=== PATIENT | male | born 1990 | race Caucasian/White ===

== ENCOUNTER 2017-12-15 14:37 | Emergency (ER) | payer SELFPAY ==
--- NOTE | 2017-12-15 15:41 | ERPHSYRPT ---
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 PT has nasal congestion and coughing. no apparent respiratory distress. 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 Around noon the patient ate and then started to have left hand loss of strength followed by having overwhelming desire to go to sleep. His hand has regained his strength. He finally called in to his office and they evaluated him. He states that as he was being evaluated, he would "fall asleep and then wake up". He denies chest pain or shortness of breath. He states for the last 2 weeks he has been sick with a cough and body aches. He he has been taking [id number] medicines. Today he took DayQuil before going to work. His past medical history is unremarkable. Timing/Duration: today Severity: moderate Associated Symptoms: cough, malaise Allergies/Adverse Reactions: No Known Drug Allergies Allergy (Unverified 12/15/17 14:53) Home Medications: No Reportable Medications [No Reported Medications] 12/15/17 [History] Hx Tetanus, Diphtheria Vaccination/Date Given: Yes Hx Influenza Vaccination/Date Given: Yes Hx Pneumococcal Vaccination/Date Given: No Immunizations Up to Date: Yes - Review of Systems Constitutional: Lethargy Eyes: No Symptoms Ears, Nose, & Throat: Sinus Drainage Respiratory: Cough Cardiac: No Chest Pain, No Edema, No Syncope Abdominal/Gastrointestinal: No Abdominal Pain, No Nausea, No Vomiting, No Diarrhea Genitourinary Symptoms: No Dysuria Musculoskeletal: No Back Pain, No Neck Pain Skin: No Rash Neurological: No Dizziness, No Focal Weakness, No Sensory Changes Psychological: No Symptoms Endocrine: No Symptoms Hematologic/Lymphatic: No Symptoms Immunological/Allergic: No Symptoms All Other Systems: Reviewed and Negative - Past Medical History Pertinent Past Medical History: Yes Psycho-Social History: Anxiety, Other Other Medical History: PTSD, Depression - Past Surgical History Past Surgical History: Yes Gastrointestinal: Appendectomy - Social History Smoking Status: Former smoker Exposure to second hand smoke: No Drug Use: none Patient Lives Alone: Yes - Nursing Vital Signs Nursing Vital Signs: Initial Vital Signs Temperature 98.5 F 12/15/17 14:38 Pulse Rate 72 12/15/17 14:38 Respiratory Rate 20 12/15/17 14:38 Blood Pressure 132/86 12/15/17 14:38 O2 Sat by Pulse Oximetry 97 12/15/17 14:38 Pain Scale Pain Intensity 0 - Physical Exam General Appearance: no apparent distress, alert Eye Exam: PERRL/EOMI, eyes nml inspection Ears, Nose, Throat Exam: normal ENT inspection, TMs normal, pharynx normal, moist mucous membranes Neck Exam: normal inspection, non-tender, supple, full range of motion Respiratory Exam: normal breath sounds, lungs clear, No respiratory distress Cardiovascular Exam: regular rate/rhythm, normal heart sounds, normal peripheral pulses Gastrointestinal/Abdomen Exam: soft, normal bowel sounds, No tenderness, No mass Rectal Exam: not done Back Exam: normal inspection, normal range of motion, No CVA tenderness, No vertebral tenderness Extremity Exam: normal inspection, normal range of motion, pelvis stable Neurologic Exam: alert, oriented x 3, cooperative, normal mood/affect, nml cerebellar function, nml station & gait, sensation nml, No motor deficits Skin Exam: normal color, warm, dry, No rash Lymphatic Exam: No adenopathy SpO2 Interpretation: normal SpO2: 97 Oxygen Delivery: Room Air - Course EKG Interpreted by Me: RATE, Sinus Rhythm, NORMAL AXIS, NORMAL INTERVALS, NORMAL QRS, NORMAL ST-T - Radiology Exams Chest X-ray Interpretation: Teleradiologist Report, Negative (per Dr Andrade) Ordered Tests: Active Orders 24 hr Category Date Time Status EKG-ER Only STAT Care 12/15/17 15:46 Active IV Insertion STAT Care 12/15/17 15:46 Active CHEST 2 VIEWS (PA AND LAT) Stat Exams 12/15/17 15:46 Completed CBC W DIFF Stat Lab 12/15/17 14:45 Completed CMP Stat Lab 12/15/17 14:45 Completed Lactic Acid Stat Lab 12/15/17 15:46 Results TROPONIN Q3H Lab 12/15/17 14:45 Completed TROPONIN Q3H Lab 12/15/17 19:00 Ordered TROPONIN Q3H Lab 12/15/17 22:00 Ordered TROPONIN Q3H Lab 12/16/17 01:00 Ordered TROPONIN Q3H Lab 12/16/17 04:00 Ordered UA W/ MICROSCOPIC Stat Lab 12/15/17 16:38 Completed Urine Triage Profile Stat Lab 12/15/17 16:38 Completed Medication Summary Discontinued Medications Generic Name Dose Route Start Last Admin Trade Name Freq PRN Reason Stop Dose Admin Sodium Chloride 1,000 mls @ 999 mls/hr 12/15/17 15:46 12/15/17 17:05 Sodium Chloride 0.9% 1000 Ml IV 12/15/17 16:46 Infused .Q1H1M STA Infusion Sodium Chloride Confirm 12/15/17 15:53 Sodium Chloride 0.9% 1000 Ml Administered 12/15/17 15:54 Dose 1,000 mls @ ud .ROUTE .STK-MED ONE Lab/Rad Data: Laboratory Result Diagrams 12/15/17 14:45 12/15/17 14:45 Laboratory Results 12/15/17 12/15/17 12/15/17 Range/Units 16:38 16:38 15:46 WBC (4.0-10.5) K/mm3 RBC (4.1-5.6) M/mm3 Hgb (12.5-18.0) gm/dl Hct (42-50) % MCV (78-100) fl MCH (26-32) pg MCHC (32-36) g/dl RDW (11.5-14.0) % Plt Count (150-450) K/mm3 MPV (6-9.5) fl Gran % (36.0-66.0) % Eos # (Auto) (0-0.5) Absolute Lymphs (auto) (1.0-4.6) Absolute Monos (auto) (0.0-1.3) Lymphocytes % (24.0-44.0) % Monocytes % (0.0-12.0) % Eosinophils % (0.00-5.0) % Basophils % (0.0-0.4) % Absolute Granulocytes (1.4-6.9) Basophils # (0-0.4) Sodium (137-145) mmol/L Potassium (3.5-5.1) mmol/L Chloride (98-107) mmol/L Carbon Dioxide (22-30) mmol/L Anion Gap (5-15) MEQ/L BUN (9-20) mg/dL Creatinine (0.66-1.25) mg/dL Estimated GFR ML/MIN Glucose (74-106) mg/dL Lactic Acid 2.1 H (0.4-2.0) Calcium (8.4-10.2) mg/dL Total Bilirubin (0.2-1.3) mg/dL AST (17-59) U/L ALT (0-50) U/L Alkaline Phosphatase (38-126) U/L Troponin I (0.000-0.034) ng/mL Serum Total Protein (6.3-8.2) g/dL Albumin (3.5-5.0) g/dL Ur Collection Type CCMS Urine Color YELLOW (YELLOW) Urine Appearance CLEAR (CLEAR) Urine pH 8.0 (5-6) Ur Specific Burley 1.010 (1.005-1.025) Urine Protein NEGATIVE (Negative) Urine Ketones NEGATIVE (NEGATIVE) Urine Blood 50 (0-5) Buck/ul Urine Nitrite NEGATIVE (NEGATIVE) Urine Bilirubin NEGATIVE (NEGATIVE) Urine Urobilinogen 4 (0-1) mg/dL Ur Leukocyte Esterase NEGATIVE (NEGATIVE) Urine Microscopic RBC 15-25 (0-2) /HPF Urine Microscopic WBC 0-2 (0-5) /HPF Urine Mucus SLIGHT (NEGATIVE) /HPF Urine Culture Reflexed NO (NO) Urine Glucose NEGATIVE (NEGATIVE) mg/dL Urine Opiates Level NEGATIVE (NEGATIVE) Ur Methadone NEGATIVE (NEGATIVE) Urine Barbiturates NEGATIVE (NEGATIVE) Ur Phencyclidine (PCP) NEGATIVE (NEGATIVE) Urine Amphetamine NEGATIVE (NEGATIVE) U Benzodiazepine Level NEGATIVE (NEGATIVE) Urine Cocaine NEGATIVE (NEGATIVE) Urine Marijuana (THC) NEGATIVE (NEGATIVE) Specimen Received 12-15-17 1700 12/15/17 12/15/17 12/15/17 Range/Units 14:45 14:45 14:45 WBC 8.3 (4.0-10.5) K/mm3 RBC 4.85 (4.1-5.6) M/mm3 Hgb 15.2 (12.5-18.0) gm/dl Hct 42.9 (42-50) % MCV 88.5 (78-100) fl MCH 31.3 (26-32) pg MCHC 35.4 (32-36) g/dl RDW 12.2 (11.5-14.0) % Plt Count 220 (150-450) K/mm3 MPV 9.5 (6-9.5) fl Gran % 68.9 H (36.0-66.0) % Eos # (Auto) 0.02 (0-0.5) Absolute Lymphs (auto) 1.75 (1.0-4.6) Absolute Monos (auto) 0.82 (0.0-1.3) Lymphocytes % 21.0 L (24.0-44.0) % Monocytes % 9.8 (0.0-12.0) % Eosinophils % 0.2 (0.00-5.0) % Basophils % 0.1 (0.0-0.4) % Absolute Granulocytes 5.74 (1.4-6.9) Basophils # 0.01 (0-0.4) Sodium 142 (137-145) mmol/L Potassium 3.5 (3.5-5.1) mmol/L Chloride 105 (98-107) mmol/L Carbon Dioxide 25 (22-30) mmol/L Anion Gap 15.6 H (5-15) MEQ/L BUN 16 (9-20) mg/dL Creatinine 0.80 (0.66-1.25) mg/dL Estimated GFR > 60.0 ML/MIN Glucose 105 (74-106) mg/dL Lactic Acid (0.4-2.0) Calcium 9.1 (8.4-10.2) mg/dL Total Bilirubin 0.90 (0.2-1.3) mg/dL AST 22 (17-59) U/L ALT 31 (0-50) U/L Alkaline Phosphatase 78 (38-126) U/L Troponin I < 0.012 (0.000-0.034) ng/mL Serum Total Protein 7.7 (6.3-8.2) g/dL Albumin 4.4 (3.5-5.0) g/dL Ur Collection Type Urine Color (YELLOW) Urine Appearance (CLEAR) Urine pH (5-6) Ur Specific Burley (1.005-1.025) Urine Protein (Negative) Urine Ketones (NEGATIVE) Urine Blood (0-5) Buck/ul Urine Nitrite (NEGATIVE) Urine Bilirubin (NEGATIVE) Urine Urobilinogen (0-1) mg/dL Ur Leukocyte Esterase (NEGATIVE) Urine Microscopic RBC (0-2) /HPF Urine Microscopic WBC (0-5) /HPF Urine Mucus (NEGATIVE) /HPF Urine Culture Reflexed (NO) Urine Glucose (NEGATIVE) mg/dL Urine Opiates Level (NEGATIVE) Ur Methadone (NEGATIVE) Urine Barbiturates (NEGATIVE) Ur Phencyclidine (PCP) (NEGATIVE) Urine Amphetamine (NEGATIVE) U Benzodiazepine Level (NEGATIVE) Urine Cocaine (NEGATIVE) Urine Marijuana (THC) (NEGATIVE) Specimen Received - Progress Progress: improved Progress Note: 12/15/17 17:40 Pt improving after NS 1 L by IV. Counseled pt/family regarding: lab results, diagnosis, rad results - Departure Time of Disposition: 17:41 Departure Disposition: Home Clinical Impression: Weakness, Dehydration Condition: Stable Critical Care Time: No Additional Instructions: You have weakness and mild dehydration. You were given fluids by IV in the ER. Stay well hydrated. Follow-up with your primary medical doctor in one to 2 days.
[2017-12-15] MEDS ORDERED: Sodium Chloride 0.9% 1000 ML 1,000 ML IV STA (15:46)
[2017-12-15 15:53] LABS: BASOPHIL % 0.1 % (0.0-0.4); Basophil (Absolute #) 0.01 (0-0.4); Eosinophil % 0.2 % (0.00-5.0); Eosinophil (Absolute #) 0.02 (0-0.5); Granulocyte Absolute (ANC) 5.74 (1.4-6.9); Granulocytes % 68.9 % (36.0-66.0); Hematocrit 42.9 % (42-50); Hemoglobin 15.2 gm/dl (12.5-18.0); Lymphocyte (Absolute #) 1.75 (1.0-4.6); Mean Cell Volume 88.5 fl (78-100); Mean Corpuscular Hemoglobin 31.3 pg (26-32); Mean Corpuscular Hgb Concent. 35.4 g/dl (32-36); Mean Platelet Volume 9.5 fl (6-9.5); Monocyte (Absolute #) 0.82 (0.0-1.3); Monocytes % 9.8 % (0.0-12.0); Platelet Count 220 K/mm3 (150-450); Red Blood Count 4.85 M/mm3 (4.1-5.6); Red Cell Distribution Width 12.2 % (11.5-14.0); White Blood Count 8.3 K/mm3 (4.0-10.5)
[2017-12-15] MEDS ORDERED: Sodium Chloride 0.9% 1000 ML 1,000 ML ONE (15:53)
[2017-12-15 15:57] LABS: Lactic Acid 2.1 (0.4-2.0)
[2017-12-15 16:16] LABS: ALBUMIN 4.4 g/dL (3.5-5.0); ALKALINE PHOSPHATASE 78 U/L (38-126); ANION GAP 15.6 MEQ/L (5-15); BLOOD UREA NITROGEN 16 mg/dL (9-20); CHLORIDE 105 mmol/L (98-107); Calcium 9.1 mg/dL (8.4-10.2); Carbon Dioxide 25 mmol/L (22-30); Glucose 105 mg/dL (74-106); Potassium 3.5 mmol/L (3.5-5.1); SGOT/AST 22 U/L (17-59); SGPT/ALT 31 U/L (0-50); SODIUM 142 mmol/L (137-145); Total Protein 7.7 g/dL (6.3-8.2)
--- NOTE | 2017-12-15 16:26 | XRAY ---
Exam: Two-view chest series from 12/15/2017. Comparison: None. Indication: Cough 2 weeks, shortness of breath. Findings: Upright PA and lateral chest films are submitted for evaluation. The heart size and contour are normal. The lungs are well inflated. The tommie and mediastinal structures appear unremarkable. No infiltrates, vascular congestion, pneumothorax, or pleural fluid is seen. No abnormal soft tissue lung nodularity is seen. No acute osseous process is seen. Impression: 1. No infiltrates to suggest focal pneumonia or other acute cardiopulmonary disease is seen.
[2017-12-15 17:09] LABS: Appearance CLEAR (CLEAR); Bilirubin NEGATIVE (NEGATIVE); Blood 50 Ery/ul (0-5); Glucose NEGATIVE (NEGATIVE); Ketones NEGATIVE (NEGATIVE); Leukocyte Esterase NEGATIVE (NEGATIVE); Mucus SLIGHT /HPF (NEGATIVE); Nitrite NEGATIVE (NEGATIVE); Protein,Urine Dip NEGATIVE (Negative); RBC 15-25 /HPF (0-2); Urobilinogen 4 mg/dL (0-1); WBC 0-2 /HPF (0-5)
[2017-12-15 17:12] LABS: Amphetamine,Urine NEGATIVE (NEGATIVE); Barbiturate,Urine NEGATIVE (NEGATIVE); Benzodiazepine,Urine NEGATIVE (NEGATIVE); Cocaine,Urine NEGATIVE (NEGATIVE); Methadone,Urine NEGATIVE (NEGATIVE); Opiate,Urine NEGATIVE (NEGATIVE); PCP,Urine NEGATIVE (NEGATIVE); THC,Urine NEGATIVE (NEGATIVE)
[2017-12-15 17:23] VITALS: BP 138/71; PULSE 100; O2SAT 97
== END 2017-12-15 17:54 | disposition home or self-care (01) ==
LOC: ED 14:37
DX: R53.1 Weakness (principal); E86.0 Dehydration; F41.9 Anxiety disorder, unspecified
CPT/HCPCS: 36000; 36415; 71046; 80053; 80307; 81000; 83605; 84484; 85025; 93005; 96360; 99284

== ENCOUNTER 2019-02-16 15:43 | Emergency (ER) | payer MEDICAID ==
[2019-02-16] MEDS ORDERED: Vancomycin 1GM/ Ns 250ML*** 250 ML IV ONE ×2 (16:00→16:16)
[2019-02-16] MEDS ORDERED: Zosyn 3.375GM/100 Ml D5W 3.375 GM/100 ML IVPB IV STA (16:00)
[2019-02-16] MEDS ORDERED: TYLENOL 325 MG PO STA (16:00)
[2019-02-16] MEDS ORDERED: Zofran 4 MG/2 ML VIAL IV ONE (16:00)
--- NOTE | 2019-02-16 16:06 | ERPHSYRPT ---
- History of Present Illness Time Seen by Provider: 02/16/19 16:03 Source: patient, family Patient Subjective Stated Complaint: pt states he has had a headache for three days, fever three days and nausea Triage Nursing Assessment: pt is flushed, alert and oriented, temp is 102 oral, pt rates Johns pain as 8/10 Physician History: mild to mod fever and headache for 3 days w/ nausea, seen previously at [facility], no rash, speech fluent Allergies/Adverse Reactions: No Known Drug Allergies Allergy (Verified 02/16/19 16:02) Home Medications: No Reportable Medications [No Reported Medications] 12/15/17 [History] Hx Tetanus, Diphtheria Vaccination/Date Given: Yes Hx Influenza Vaccination/Date Given: Yes Hx Pneumococcal Vaccination/Date Given: No - Review of Systems Constitutional: Fever, Fatigue, Malaise Eyes: No Eye Redness Ears, Nose, & Throat: No Nose Congestion Respiratory: No Cough Cardiac: No Chest Pain Abdominal/Gastrointestinal: Nausea, No Abdominal Pain Genitourinary Symptoms: No Dysuria Musculoskeletal: Arthralgias, Myalgias Skin: No Rash Neurological: Headache, No Focal Weakness - Past Medical History Pertinent Past Medical History: No Psycho-Social History: Anxiety, Other Other Medical History: arachnoid cyst on brain - Past Surgical History Past Surgical History: Yes (nose) Gastrointestinal: Appendectomy - Social History Smoking Status: Never smoker Exposure to second hand smoke: No Drug Use: none Patient Lives Alone: Yes - Nursing Vital Signs Nursing Vital Signs: Initial Vital Signs Temperature 102 F 02/16/19 15:50 Pulse Rate 101 H 02/16/19 15:50 Respiratory Rate 18 02/16/19 15:50 Blood Pressure 142/82 02/16/19 15:50 O2 Sat by Pulse Oximetry 97 02/16/19 15:50 Pain Scale Pain Intensity 8 - Physical Exam General Appearance: no apparent distress Eye Exam: PERRL/EOMI Ears, Nose, Throat Exam: TMs normal, pharynx normal, moist mucous membranes Neck Exam: limited range of motion Respiratory Exam: normal breath sounds Cardiovascular Exam: regular rate/rhythm Gastrointestinal/Abdominal Exam: soft, No tenderness Extremity Exam: normal range of motion Mental Status Exam: alert, oriented x 3, 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: normal speech, PERRL Motor/Sensory Exam: no motor deficit Skin Exam: warm, dry SpO2 Interpretation: normal SpO2: 97 - Course Nursing assessment & vital signs reviewed: Yes EKG Interpreted by Me: RATE, Sinus Rhythm - Radiology Exams Chest X-ray Interpretation: Discussed w/ radiologist, Negative - CT Exams Head CT Interpretation: Negative, Discussed w/radiologist Ordered Tests: Active Orders 24 hr Category Date Time Status After School Driver STAT Care 02/16/19 16:01 Active EKG-ER Only STAT Care 02/16/19 16:00 Active IV Insertion STAT Care 02/16/19 16:00 Active CHEST 1 VIEW (PORTABLE) Stat Exams 02/16/19 16:01 Completed HEAD WITHOUT CONTRAST [CT] Stat Exams 02/16/19 17:20 Taken BLOOD CULTURE Stat Lab 02/16/19 16:20 Received CBC W DIFF Stat Lab 02/16/19 16:12 Completed CMP Stat Lab 02/16/19 16:12 Completed CULTURE,URINE Stat Lab 02/16/19 18:39 Ordered Lactic Acid Stat Lab 02/16/19 16:15 Completed PROTIME WITH INR Stat Lab 02/16/19 16:12 Completed Urinalysis with Microscopy Stat Lab 02/16/19 18:39 Ordered Medication Summary Generic Name Dose Route Start Last Admin Trade Name Freq PRN Reason Stop Dose Admin Lactated Ringer's 1,000 mls @ 999 mls/hr 02/16/19 16:00 02/16/19 17:45 Lactated Ringers IV 02/16/19 19:00 999 mls/hr .Q1H1M EITAN Administration Discontinued Medications Generic Name Dose Route Start Last Admin Trade Name Freq PRN Reason Stop Dose Admin Acetaminophen 975 mg 02/16/19 16:00 02/16/19 16:25 Tylenol 325 Mg PO 02/16/19 16:01 975 mg STAT STA Administration Acetaminophen Confirm 02/16/19 16:15 Tylenol 325 Mg Administered 02/16/19 16:16 Dose 975 mg .ROUTE .STK-MED ONE Vancomycin HCl 250 mls @ 167 mls/hr 02/16/19 16:00 02/16/19 16:25 Vancomycin 1gm/ Ns 250ml IV 02/16/19 17:29 167 mls/hr STAT ONE Administration Piperacillin Sod/Tazobactam Sod 3.375 gm in 100 mls @ 200 mls/hr 02/16/19 16: 00 Zosyn 3.375gm/100 Ml D5w IV 02/16/19 16:29 STAT STA Piperacillin Sod/Tazobactam Sod Confirm 02/16/19 16:15 Zosyn 3.375gm/100 Ml D5w Administered 02/16/19 16:16 Dose 3.375 gm in 100 mls @ ud IV .STK-MED ONE Vancomycin HCl Confirm 02/16/19 16:16 Vancomycin 1gm/ Ns 250ml Administered 02/16/19 16:17 Dose 250 mls @ ud IV .STK-MED ONE Ondansetron HCl 4 mg 02/16/19 16:00 02/16/19 16:24 Zofran 4 Mg/2 Ml Vial IV 02/16/19 16:01 4 mg STAT ONE Administration Ondansetron HCl Confirm 02/16/19 16:15 Zofran 4 Mg/2 Ml Vial Administered 02/16/19 16:16 Dose 4 mg .ROUTE .STK-MED ONE Lab/Rad Data: Laboratory Result Diagrams 02/16/19 16:12 02/16/19 16:12 Laboratory Results 02/16/19 02/16/19 02/16/19 Range/Units 16:15 16:12 16:12 WBC (4.0-10.5) K/mm3 RBC (4.1-5.6) M/mm3 Hgb (12.5-18.0) gm/dl Hct (42-50) % MCV (78-100) fl MCH (26-32) pg MCHC (32-36) g/dl RDW (11.5-14.0) % Plt Count (150-450) K/mm3 MPV (6-9.5) fl Gran % (36.0-66.0) % Eos # (Auto) (0-0.5) Absolute Lymphs (auto) (1.0-4.6) Absolute Monos (auto) (0.0-1.3) Lymphocytes % (24.0-44.0) % Monocytes % (0.0-12.0) % Eosinophils % (0.00-5.0) % Basophils % (0.0-0.4) % Absolute Granulocytes (1.4-6.9) Basophils # (0-0.4) PT 14.2 H (8.83-12.87) SECONDS INR 1.25 (0.8-3.0) Sodium (137-145) mmol/L Potassium (3.5-5.1) mmol/L Chloride (98-107) mmol/L Carbon Dioxide (22-30) mmol/L Anion Gap (5-15) MEQ/L BUN (9-20) mg/dL Creatinine (0.66-1.25) mg/dL Estimated GFR ML/MIN Glucose (74-106) mg/dL Lactic Acid 1.4 (0.4-2.0) Calcium (8.4-10.2) mg/dL Total Bilirubin (0.2-1.3) mg/dL AST (17-59) U/L ALT (0-50) U/L Alkaline Phosphatase (38-126) U/L Serum Total Protein (6.3-8.2) g/dL Albumin (3.5-5.0) g/dL Group A Strep Antibody NEGATIVE (NEGATIVE) 02/16/19 02/16/19 Range/Units 16:12 16:12 WBC 6.4 (4.0-10.5) K/mm3 RBC 5.04 (4.1-5.6) M/mm3 Hgb 16.4 (12.5-18.0) gm/dl Hct 45.9 (42-50) % MCV 91.1 (78-100) fl MCH 32.5 H (26-32) pg MCHC 35.7 (32-36) g/dl RDW 12.2 (11.5-14.0) % Plt Count 164 (150-450) K/mm3 MPV 9.3 (6-9.5) fl Gran % 72.4 H (36.0-66.0) % Eos # (Auto) 0.03 (0-0.5) Absolute Lymphs (auto) 0.67 L (1.0-4.6) Absolute Monos (auto) 1.04 (0.0-1.3) Lymphocytes % 10.5 L (24.0-44.0) % Monocytes % 16.3 H (0.0-12.0) % Eosinophils % 0.5 (0.00-5.0) % Basophils % 0.3 (0.0-0.4) % Absolute Granulocytes 4.61 (1.4-6.9) Basophils # 0.02 (0-0.4) PT (8.83-12.87) SECONDS INR (0.8-3.0) Sodium 136 L (137-145) mmol/L Potassium 3.8 (3.5-5.1) mmol/L Chloride 101 (98-107) mmol/L Carbon Dioxide 23 (22-30) mmol/L Anion Gap 15.0 (5-15) MEQ/L BUN 13 (9-20) mg/dL Creatinine 0.84 (0.66-1.25) mg/dL Estimated GFR > 60.0 ML/MIN Glucose 111 H (74-106) mg/dL Lactic Acid (0.4-2.0) Calcium 9.1 (8.4-10.2) mg/dL Total Bilirubin 1.00 (0.2-1.3) mg/dL AST 51 (17-59) U/L ALT 44 (0-50) U/L Alkaline Phosphatase 82 (38-126) U/L Serum Total Protein 8.3 H (6.3-8.2) g/dL Albumin 4.5 (3.5-5.0) g/dL Group A Strep Antibody (NEGATIVE) - Progress Progress: improved Air Movement: good Progress Note: 02/16/19 18:[address] Houston at 19:00 02/16/19 18:51 Dr Sims advises transferring due to no neurology, unable to safely do a spinal tap due to elevated inr, Dr [facility] Blood Culture(s) Obtained: Yes Antibiotics given: Yes - Departure Departure Disposition: Transfer Clinical Impression: Weakness Fever Qualifiers: Fever type: unspecified Qualified Code(s): R50.9 - Fever, unspecified Headache Qualifiers: Headache type: unspecified Headache chronicity pattern: acute headache Intractability: intractable Qualified Code(s): R51 - Headache Condition: Stable Critical Care Time: No Referrals: DOCTOR,NO FAMILY [Primary Care Provider] -
[2019-02-16] MEDS ORDERED: Zofran 4 MG/2 ML VIAL ONE (16:15)
[2019-02-16] MEDS ORDERED: Lactated Ringers 1,000 ML IV ONE ×3 (16:15→17:42)
[2019-02-16] MEDS ORDERED: Zosyn 3.375GM/100 Ml D5W 3.375 GM/100 ML IVPB IV ONE (16:15)
[2019-02-16] MEDS ORDERED: TYLENOL 325 MG ONE (16:15)
[2019-02-16] MEDS: Lactated Ringers 1,000 ML IV SCH ×3 (16:26→18:57)
[2019-02-16 16:27] LABS: BASOPHIL % 0.3 % (0.0-0.4); Basophil (Absolute #) 0.02 (0-0.4); Eosinophil % 0.5 % (0.00-5.0); Eosinophil (Absolute #) 0.03 (0-0.5); Granulocyte Absolute (ANC) 4.61 (1.4-6.9); Granulocytes % 72.4 % (36.0-66.0); Hematocrit 45.9 % (42-50); Hemoglobin 16.4 gm/dl (12.5-18.0); Lymphocyte (Absolute #) 0.67 (1.0-4.6); Lymphocytes % 10.5 % (24.0-44.0); Mean Cell Volume 91.1 fl (78-100); Mean Corpuscular Hemoglobin 32.5 pg (26-32); Mean Corpuscular Hgb Concent. 35.7 g/dl (32-36); Mean Platelet Volume 9.3 fl (6-9.5); Monocyte (Absolute #) 1.04 (0.0-1.3); Monocytes % 16.3 % (0.0-12.0); Platelet Count 164 K/mm3 (150-450); Red Blood Count 5.04 M/mm3 (4.1-5.6); Red Cell Distribution Width 12.2 % (11.5-14.0); White Blood Count 6.4 K/mm3 (4.0-10.5)
[2019-02-16 16:42] LABS: INR 1.25 (0.8-3.0); PROTIME 14.2 SECONDS (8.83-12.87)
[2019-02-16 16:46] LABS: ALBUMIN 4.5 g/dL (3.5-5.0); ALKALINE PHOSPHATASE 82 U/L (38-126); BLOOD UREA NITROGEN 13 mg/dL (9-20); CHLORIDE 101 mmol/L (98-107); Calcium 9.1 mg/dL (8.4-10.2); Carbon Dioxide 23 mmol/L (22-30); Creatinine 1 0.84 mg/dL (0.66-1.25); Glucose 111 mg/dL (74-106); Potassium 3.8 mmol/L (3.5-5.1); SGOT/AST 51 U/L (17-59); SGPT/ALT 44 U/L (0-50); SODIUM 136 mmol/L (137-145); Total Protein 8.3 g/dL (6.3-8.2)
--- NOTE | 2019-02-16 16:50 | XRAY ---
Indication: Possible sepsis. Comparison: December 15, 2017. Portable chest again demonstrates normal heart and lungs. Bony thorax intact. No new/acute findings.
[2019-02-16 19:08] LABS: Appearance CLEAR (CLEAR); Bilirubin NEGATIVE (NEGATIVE); Blood LARGE Ery/ul (0-5); Glucose NEGATIVE (NEGATIVE); Ketones NEGATIVE (NEGATIVE); Leukocyte Esterase NEGATIVE (NEGATIVE); Mucus SLIGHT /HPF (NEGATIVE); Nitrite NEGATIVE (NEGATIVE); Protein,Urine Dip NEGATIVE (Negative); Specific Gravity 1.012 (1.005-1.025); Urobilinogen 2 mg/dL (0-1)
[2019-02-16 19:38] VITALS: BP 136/91; PULSE 82; O2SAT 97
--- NOTE | 2019-02-17 09:03 | XRAY ---
Indication: Headache, fever, and nausea. Multiple contiguous axial images obtained through the head without contrast. Comparison: None Normal appearing brain parenchyma, ventricles, and bony calvarium. Visualized paranasal sinuses and mastoid air cells are clear. Impression: Normal CT head without contrast exam. CT DI 68.15
== END 2019-02-16 20:30 | disposition short-term general hospital (02) ==
LOC: ED 15:43
DX: R50.9 Fever, unspecified (principal); R51 Headache
CPT/HCPCS: 36000; 36415; 70450; 71045; 80053; 81001; 83605; 85025; 85610; 87040; 87086; 87651; 93005; 93041; 96365; 96367; 96374; 99285; J2405; J2543; J3370; A9270-GY

== ENCOUNTER 2019-07-27 23:24 | Emergency (ER) | payer MEDICAID, OTHER ==
[2019-07-27 23:47] LABS: Absolute Neutrophil Ct (ANC) 4.07 (1.4-6.9); BASOPHIL % 0.3 % (0.0-0.4); Basophil (Absolute #) 0.02 (0-0.4); Eosinophil % 2.4 % (0.00-5.0); Eosinophil (Absolute #) 0.18 (0-0.5); Hematocrit 42.8 % (42-50); Hemoglobin 14.9 gm/dl (12.5-18.0); Lymphocyte (Absolute #) 2.43 (1.0-4.6); Lymphocytes % 31.9 % (24.0-44.0); Mean Cell Volume 91.3 fl (78-100); Mean Corpuscular Hemoglobin 31.8 pg (26-32); Mean Corpuscular Hgb Concent. 34.8 g/dl (32-36); Mean Platelet Volume 9.4 fl (7.5-11.0); Monocyte (Absolute #) 0.91 (0.0-1.3); Neutrophil % 53.4 % (36.0-66.0); Platelet Count 223 K/mm3 (150-450); Red Blood Count 4.69 M/mm3 (4.1-5.6); Red Cell Distribution Width 12.4 % (11.5-14.0); White Blood Count 7.6 K/mm3 (4.0-10.5)
[2019-07-27 23:55] LABS: INR 1.03 (0.8-3.0); PROTIME 11.7 SECONDS (8.83-12.87)
[2019-07-27 23:59] LABS: ALBUMIN 4.4 g/dL (3.5-5.0); ALKALINE PHOSPHATASE 75 U/L (38-126); ANION GAP 13.1 MEQ/L (5-15); BLOOD UREA NITROGEN 17 mg/dL (9-20); CHLORIDE 104 mmol/L (98-107); Calcium 9.3 mg/dL (8.4-10.2); Carbon Dioxide 29 mmol/L (22-30); Creatinine 1 0.83 mg/dL (0.66-1.25); Glucose 104 mg/dL (74-106); Potassium 3.6 mmol/L (3.5-5.1); SGOT/AST 28 U/L (17-59); SGPT/ALT 28 U/L (0-50); SODIUM 142 mmol/L (137-145); Total Protein 7.8 g/dL (6.3-8.2)
[2019-07-28 00:03] LABS: D-DIMER QUANTITATIVE < 215 ng/mL (215-500)
--- NOTE | 2019-07-28 00:11 | ERPHSYRPT ---
- History of Present Illness Source: patient Exam Limitations: no limitations Patient Subjective Stated Complaint: "I felt really lightheaded and passed out at home. I was only passed out for a few seconds though. I have been feeling really weird the past couple of weeks. I have been really forgetful and feel like I don't know what I'm doing." Triage Nursing Assessment: Pt presents to ER with in wheelchair, came from home following a syncopal episode. His states he was only unconcious for a few seconds but has been acting different lately, she is concerned he may be having TIAs or seizures. Pt is alert and oriented at time of triage. Lung sounds clear and equal throughout. Resp easy. Abd soft and tender upon palpitation. Normal bowel sounds. 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 Speech is clear. Face is symetrical. Skin is pink , warm, and dry. Pt does admit he was seen at [facility] ER a week and half ago and dx with allergic reaction to new medication. Pt was recently put on Rx Paxil, vicodin, xanax, and new BP medication. Physician History: Patient is a 29-year-old male presents to our ED with his significant other for evaluation of progressive symptomology. Patient states he has not been feeling well over the past several months. Patient states "Nelly been feeling weird". Today patient had a syncopal episode. states that it was associated with fluttering of the eyelids. Patient appeared to be having a seizure. However there was no postictal. No associated fevers. No headache. No nausea or vomiting. No neck pain. No photophobia. Patient has no meningeal signs. Patient states for the past several months he has been very forgetful. Patient concerned that he may be having a stroke. However he has no associated numbness tingling. Patient feels as though his extremities are heavy. He voices no other complaints at this time. Witnessed: by family Prior Episodes: single episode today, recent history Timing/Duration: week(s) Precipitating Factors: none, confusion, lightheadedness Allergies/Adverse Reactions: No Known Drug Allergies Allergy (Verified 02/16/19 16:02) Home Medications: Alprazolam [Xanax] 0.5 mg PO DAILY 07/27/19 [History] Hydrocodone Bit/Acetaminophen [[place] 10-325 Tablet] 10 mg PO DAILY 07/27/19 [ History] PARoxetine HCl [Paxil] 10 mg PO DAILY 07/27/19 [History] Hx Tetanus, Diphtheria Vaccination/Date Given: No Hx Influenza Vaccination/Date Given: No Hx Pneumococcal Vaccination/Date Given: No Immunizations Up to Date: Yes - Past Medical History Pertinent Past Medical History: Yes Cardiac History: Hypertension Psycho-Social History: Anxiety, Depression Other Medical History: Chronic back pain - Past Surgical History Past Surgical History: Yes Gastrointestinal: Appendectomy - Social History Smoking Status: Never smoker Exposure to second hand smoke: No Drug Use: none Patient Lives Alone: No - Review of Systems Constitutional: No Fever, No Chills Eyes: No Symptoms Ears, Nose, & Throat: No Symptoms Respiratory: No Symptoms, No Cough, No Dyspnea Cardiac: No Symptoms, No Chest Pain, No Edema, No Syncope Abdominal/Gastrointestinal: No Symptoms, No Abdominal Pain, No Nausea, No Vomiting, No Diarrhea Genitourinary Symptoms: No Symptoms, No Dysuria Musculoskeletal: No Symptoms, No Back Pain, No Neck Pain Skin: No Symptoms, No Rash Neurological: No Symptoms, No Dizziness, No Focal Weakness, No Sensory Changes Psychological: No Symptoms Endocrine: No Symptoms Hematologic/Lymphatic: No Symptoms Immunological/Allergic: No Symptoms All Other Systems: Reviewed and Negative Physical Exam - Nursing Vital Signs Nursing Vital Signs: Initial Vital Signs Temperature 97.4 F 07/27/19 23:26 Pulse Rate 75 07/27/19 23:26 Respiratory Rate 16 07/27/19 23:26 Blood Pressure 147/93 07/27/19 23:26 O2 Sat by Pulse Oximetry 97 07/27/19 23:26 Pain Scale Pain Intensity 5 - [place] Coma Scale Best Eye Response ([place]): (4) open spontaneously Best Verbal Response (Lesley): (5) oriented Best Motor Response (Lesley): (6) obeys commands Lesley Total: 15 - Physical Exam General Appearance: no apparent distress, alert Eye Exam: bilateral eye: PERRL, EOMI Ears, Nose, Throat Exam: normal ENT inspection, pharynx normal, moist mucous membranes Neck Exam: normal inspection, non-tender, supple, full range of motion, No meningismus, No Brudzinski, No Kernig's Respiratory: normal breath sounds, lungs clear, No chest tenderness, No respiratory distress Cardiovascular: regular rate/rhythm, capillary refill <2 sec, No murmur, No pulse deficit Gastrointestinal: soft, No tenderness, No distention, No mass Back Exam: normal inspection, normal range of motion, No CVA tenderness, No vertebral tenderness Extremity Exam: normal inspection, normal range of motion, pelvis stable, No tenderness Mental Status: alert, oriented x 3, 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 ), Tele- radiologist Report Ordered Tests: Active Orders 24 hr Category Date Time Status [employer] Principal STAT Care 07/27/19 23:34 Active EKG-ER Only STAT Care 07/27/19 23:33 Active IV Insertion STAT Care 07/27/19 23:33 Active Pulse Oximetry (ED) STAT Care 07/27/19 23:33 Active HEAD WITHOUT CONTRAST [CT] Stat Exams 07/27/19 23:46 Taken CBC W DIFF Stat Lab 07/27/19 23:30 Completed CMP Stat Lab 07/27/19 23:30 Completed D-DIMER QUANTITATIVE Stat Lab 07/27/19 23:30 Completed MAGNESIUM Stat Lab 07/28/19 00:26 Completed PROTIME WITH INR Stat Lab 07/27/19 23:30 Completed TROPONIN Q3H Lab 07/27/19 23:30 Completed TROPONIN Stat Lab 07/28/19 02:32 Ordered TSH [TSH, 3RD Generation] Stat Lab 07/28/19 00:26 Completed Urine Triage Profile Stat Lab 07/28/19 02:11 Completed Medication Summary Discontinued Medications Generic Name Dose Route Start Last Admin Trade Name Freq PRN Reason Stop Dose Admin Sodium Chloride 1,000 mls @ 999 mls/hr 07/28/19 01:13 07/28/19 01:17 Sodium Chloride 0.9% 1000 Ml IV 07/28/19 02:13 999 mls/hr .Q1H1M STA Administration Sodium Chloride Confirm 07/28/19 01:12 Sodium Chloride 0.9% 1000 Ml Administered 07/28/19 01:13 Dose 1,000 mls @ ud .ROUTE .STK-MED ONE Lab/Rad Data: Laboratory Result Diagrams 07/27/19 23:30 07/27/19 23:30 Laboratory Results 07/28/19 07/28/19 07/28/19 Range/Units 02:11 00:26 00:26 WBC (4.0-10.5) K/mm3 RBC (4.1-5.6) M/mm3 Hgb (12.5-18.0) gm/dl Hct (42-50) % MCV (78-100) fl MCH (26-32) pg MCHC (32-36) g/dl RDW (11.5-14.0) % Plt Count (150-450) K/mm3 MPV (7.5-11.0) fl Gran % (36.0-66.0) % Eos # (Auto) (0-0.5) Absolute Lymphs (auto) (1.0-4.6) Absolute Monos (auto) (0.0-1.3) Lymphocytes % (24.0-44.0) % Monocytes % (0.0-12.0) % Eosinophils % (0.00-5.0) % Basophils % (0.0-0.4) % Absolute Granulocytes (1.4-6.9) Basophils # (0-0.4) PT (8.83-12.87) SECONDS INR (0.8-3.0) D-Dimer (215-500) ng/mL Sodium (137-145) mmol/L Potassium (3.5-5.1) mmol/L Chloride (98-107) mmol/L Carbon Dioxide (22-30) mmol/L Anion Gap (5-15) MEQ/L BUN (9-20) mg/dL Creatinine (0.66-1.25) mg/dL Estimated GFR ML/MIN Glucose (74-106) mg/dL Calcium (8.4-10.2) mg/dL Magnesium 1.9 (1.6-2.3) mg/dL Total Bilirubin (0.2-1.3) mg/dL AST (17-59) U/L ALT (0-50) U/L Alkaline Phosphatase (38-126) U/L Troponin I (0.000-0.034) ng/mL Serum Total Protein (6.3-8.2) g/dL Albumin (3.5-5.0) g/dL TSH 3rd Generation 4.070 (0.47-4.68) mIU/L Urine Opiates Level POSITIVE (NEGATIVE) Ur Methadone NEGATIVE (NEGATIVE) Urine Barbiturates NEGATIVE (NEGATIVE) Ur Phencyclidine (PCP) NEGATIVE (NEGATIVE) Urine Amphetamine NEGATIVE (NEGATIVE) U Benzodiazepine Level POSITIVE (NEGATIVE) Urine Cocaine NEGATIVE (NEGATIVE) Urine Marijuana (THC) NEGATIVE (NEGATIVE) 07/27/19 07/27/19 07/27/19 Range/Units 23:30 23:30 23:30 WBC (4.0-10.5) K/mm3 RBC (4.1-5.6) M/mm3 Hgb (12.5-18.0) gm/dl Hct (42-50) % MCV (78-100) fl MCH (26-32) pg MCHC (32-36) g/dl RDW (11.5-14.0) % Plt Count (150-450) K/mm3 MPV (7.5-11.0) fl Gran % (36.0-66.0) % Eos # (Auto) (0-0.5) Absolute Lymphs (auto) (1.0-4.6) Absolute Monos (auto) (0.0-1.3) Lymphocytes % (24.0-44.0) % Monocytes % (0.0-12.0) % Eosinophils % (0.00-5.0) % Basophils % (0.0-0.4) % Absolute Granulocytes (1.4-6.9) Basophils # (0-0.4) PT 11.7 (8.83-12.87) SECONDS INR 1.03 (0.8-3.0) D-Dimer < 215 L (215-500) ng/mL Sodium 142 (137-145) mmol/L Potassium 3.6 (3.5-5.1) mmol/L Chloride 104 (98-107) mmol/L Carbon Dioxide 29 (22-30) mmol/L Anion Gap 13.1 (5-15) MEQ/L BUN 17 (9-20) mg/dL Creatinine 0.83 (0.66-1.25) mg/dL Estimated GFR > 60.0 ML/MIN Glucose 104 (74-106) mg/dL Calcium 9.3 (8.4-10.2) mg/dL Magnesium (1.6-2.3) mg/dL Total Bilirubin 0.70 (0.2-1.3) mg/dL AST 28 (17-59) U/L ALT 28 (0-50) U/L Alkaline Phosphatase 75 (38-126) U/L Troponin I < 0.012 (0.000-0.034) ng/mL Serum Total Protein 7.8 (6.3-8.2) g/dL Albumin 4.4 (3.5-5.0) g/dL TSH 3rd Generation (0.47-4.68) mIU/L Urine Opiates Level (NEGATIVE) Ur Methadone (NEGATIVE) Urine Barbiturates (NEGATIVE) Ur Phencyclidine (PCP) (NEGATIVE) Urine Amphetamine (NEGATIVE) U Benzodiazepine Level (NEGATIVE) Urine Cocaine (NEGATIVE) Urine Marijuana (THC) (NEGATIVE) 07/27/19 Range/Units 23:30 WBC 7.6 (4.0-10.5) K/mm3 RBC 4.69 (4.1-5.6) M/mm3 Hgb 14.9 (12.5-18.0) gm/dl Hct 42.8 (42-50) % MCV 91.3 (78-100) fl MCH 31.8 (26-32) pg MCHC 34.8 (32-36) g/dl RDW 12.4 (11.5-14.0) % Plt Count 223 (150-450) K/mm3 MPV 9.4 (7.5-11.0) fl Gran % 53.4 (36.0-66.0) % Eos # (Auto) 0.18 (0-0.5) Absolute Lymphs (auto) 2.43 (1.0-4.6) Absolute Monos (auto) 0.91 (0.0-1.3) Lymphocytes % 31.9 (24.0-44.0) % Monocytes % 12.0 (0.0-12.0) % Eosinophils % 2.4 (0.00-5.0) % Basophils % 0.3 (0.0-0.4) % Absolute Granulocytes 4.07 (1.4-6.9) Basophils # 0.02 (0-0.4) PT (8.83-12.87) SECONDS INR (0.8-3.0) D-Dimer (215-500) ng/mL Sodium (137-145) mmol/L Potassium (3.5-5.1) mmol/L Chloride (98-107) mmol/L Carbon Dioxide (22-30) mmol/L Anion Gap (5-15) MEQ/L BUN (9-20) mg/dL Creatinine (0.66-1.25) mg/dL Estimated GFR ML/MIN Glucose (74-106) mg/dL Calcium (8.4-10.2) mg/dL Magnesium (1.6-2.3) mg/dL Total Bilirubin (0.2-1.3) mg/dL AST (17-59) U/L ALT (0-50) U/L Alkaline Phosphatase (38-126) U/L Troponin I (0.000-0.034) ng/mL Serum Total Protein (6.3-8.2) g/dL Albumin (3.5-5.0) g/dL TSH 3rd Generation (0.47-4.68) mIU/L Urine Opiates Level (NEGATIVE) Ur Methadone (NEGATIVE) Urine Barbiturates (NEGATIVE) Ur Phencyclidine (PCP) (NEGATIVE) Urine Amphetamine (NEGATIVE) U Benzodiazepine Level (NEGATIVE) Urine Cocaine (NEGATIVE) Urine Marijuana (THC) (NEGATIVE) - Progress Progress: unchanged Progress Note: 07/28/19 02:57 Patient reassessed. He has been functioning at his baseline. No change in his neurologic exam. No seizures observed in our ED. No syncope observed in our ED. Work-up essentially negative. Patient requesting discharge. Patient states his child is not feeling well and he must go home to attend his child. We advise admission. Patient declined. Patient has obligations at home. In light of patient's complaints, syncope, possible seizure, patient's concern with suspected stroke we advise admission. Patient declined. An AMA form completed. Patient is of sound mind. He is capable of making informed and independent medical decisions. Risks and benefits of leaving AMA discussed. In spite of his risk he has decided to leave AMA. An AMA form was signed. Plan of care discussed with patient. He agrees to follow-up with his primary care doctor within 48 hours for reevaluation. Counseled pt/family regarding: lab results, diagnosis, need for follow-up, rad results - Departure Departure Disposition: Home, AMA Clinical Impression: Syncope Condition: Stable Critical Care Time: No Referrals: ALKA MAYERS [Primary Care Provider] - Additional Instructions: Discharge/Care Plan MASHA LAU was seen on 07/28/19 in the Emergency Room. The patient was counseled regarding Diagnosis,Lab results, Imaging studies, need for follow up and when to return to the Emergency Room. Prescriptions given: Discharge Note I have spoken with the patient and/or caregivers. I have explained the patient' s condition, diagnosis and treatment plan based on the information available to me at this time. I have answered the patient's and/or caregiver's questions and addressed any concerns. The patient and/or caregivers have as good understanding of the patient's diagnosis, condition and treatment plan as can be expected at this point. The vital signs have been stable. The patient's condition is stable and appropriate for discharge from the emergency department. The patient will pursue further outpatient evaluation with the primary care physician or other designated or consulting physician as outlined in the discharge instructions. The patient and/or caregivers are agreeable to this plan of care and follow-up instructions have been explained in detail. The patient and/or caregivers have received these instruction. The patient/and or caregivers are aware that any significant change in condition or worsening of symptoms should prompt an immediate return to this or the closest emergency department or call 911.
[2019-07-28 01:10] VITALS: BP 118/59
[2019-07-28] MEDS ORDERED: Sodium Chloride 0.9% 1000 ML 1,000 ML ONE (01:12)
[2019-07-28] MEDS ORDERED: Sodium Chloride 0.9% 1000 ML 1,000 ML IV STA (01:13)
[2019-07-28 02:48] LABS: Amphetamine,Urine NEGATIVE (NEGATIVE); Barbiturate,Urine NEGATIVE (NEGATIVE); Benzodiazepine,Urine POSITIVE (NEGATIVE); Cocaine,Urine NEGATIVE (NEGATIVE); Methadone,Urine NEGATIVE (NEGATIVE); Opiate,Urine POSITIVE (NEGATIVE); PCP,Urine NEGATIVE (NEGATIVE); THC,Urine NEGATIVE (NEGATIVE)
[2019-07-28 03:00] VITALS: O2SAT 98
[2019-07-28 03:34] VITALS: PULSE 78
--- NOTE | 2019-07-28 09:16 | XRAY ---
Indication: An dizziness and syncope. History hypertension. Multiple contiguous axial images obtained through the head without contrast. Comparison: February 16, 2019. Again no acute intracranial hemorrhage, abnormal extra-axial fluid collection, or mass effect. Fourth ventricle is midline without hydrocephalus. Calderon-white matter differentiation preserved. Bony calvarium intact. Visualized paranasal sinuses and mastoid air cells are grossly clear. Impression: Stable negative CT head without contrast exam. Comment: Preliminary interpretation was made by [facility]. No critical discrepancy.
== END 2019-07-28 03:25 | disposition home or self-care (01) ==
LOC: ED 23:24
DX: R55 Syncope and collapse (principal)
CPT/HCPCS: 36000; 36415; 70450; 80053; 80307; 83735; 84443; 84484; 85025; 85379; 85610; 93005; 93041; 94760; 96360; 99284

== ENCOUNTER 2019-08-05 22:44 | Emergency (ER) | payer OTHER ==
--- NOTE | 2019-08-05 23:25 | ERPHSYRPT ---
- History of Present Illness Time Seen by Provider: 08/05/19 23:19 Source: patient Exam Limitations: no limitations Physician History: pt is 29 yr old male with ST , swallowing OK no vomiting; no abd pain , no shortness of breath and lungs are clear; discussed testing vs ab since has pus in throat and he prefers to proceed with tx and understands may also miss other pathology such as flu , but not feeling that bad at this time; per pt was ex[posed to strep and flu but not really flu symptoms as yet just sore throat; Timing/Duration: day(s) Cough Quality/Degree: dry cough Possible Cause: no prior episodes Modifying Factors: Improves With: nothing Associated Symptoms: cough, sore throat International travel in last 2 weeks: No Allergies/Adverse Reactions: ondansetron [From [employer]] Allergy (Verified 08/05/19 23:06) Headache Home Medications: Alprazolam [Xanax] 0.5 mg PO DAILY 07/27/19 [History] Hydrocodone Bit/Acetaminophen [[place] 10-325 Tablet] 10 mg PO DAILY 07/27/19 [ History] PARoxetine HCl [Paxil] 10 mg PO DAILY 07/27/19 [History] Benazepril HCl 10 mg PO DAILY 08/05/19 [History] Hx Tetanus, Diphtheria Vaccination/Date Given: Yes Hx Influenza Vaccination/Date Given: Yes Hx Pneumococcal Vaccination/Date Given: No - Review of Systems Constitutional: No Fever, No Chills, No Malaise, No Night Sweats, No Weakness Eyes: No Symptoms Ears, Nose, & Throat: Nose Congestion, Throat Pain, No Painful Swallowing Respiratory: Cough, No Dyspnea, No Stridor, No Wheezing Cardiac: No Chest Pain, No Edema, No Syncope Abdominal/Gastrointestinal: No Abdominal Pain, No Nausea, No Vomiting, No Diarrhea Genitourinary Symptoms: No Dysuria Musculoskeletal: No Back Pain, No Neck Pain Skin: No Rash Neurological: No Dizziness, No Focal Weakness, No Sensory Changes Psychological: No Symptoms Endocrine: No Symptoms All Other Systems: Reviewed and Negative - Past Medical History Pertinent Past Medical History: No Cardiac History: Hypertension Psycho-Social History: Anxiety, Other Other Medical History: arachnoid cyst on brain - Past Surgical History Past Surgical History: Yes (nose) Gastrointestinal: Appendectomy - Social History Smoking Status: Never smoker Exposure to second hand smoke: No Drug Use: none Patient Lives Alone: Yes - Physical Exam General Appearance: no apparent distress, alert Eye Exam: PERRL/EOMI, eyes nml inspection Ears, Nose, Throat Exam: TMs normal, moist mucous membranes, pharyngeal erythema , tonsillar exudate Neck Exam: normal inspection, non-tender, supple, full range of motion, No meningismus Respiratory Exam: normal breath sounds, lungs clear, No respiratory distress Cardiovascular Exam: regular rate/rhythm, normal heart sounds Gastrointestinal/Abdomen Exam: soft, No tenderness Rectal Exam: deferred Back Exam: normal inspection, No CVA tenderness, No vertebral tenderness Extremity Exam: normal inspection, normal range of motion Neurologic Exam: alert, oriented x 3, cooperative, normal mood/affect, sensation nml, No motor deficits Skin Exam: normal color, warm, dry, No rash Lymphatic Exam: No adenopathy - Course Nursing assessment & vital signs reviewed: Yes - Progress Progress: improved, re-examined Air Movement: good Blood Culture(s) Obtained: No Antibiotics given: Yes Counseled pt/family regarding: diagnosis, need for follow-up - Departure Departure Disposition: Home Clinical Impression: Exudative pharyngitis Condition: Good Critical Care Time: No Referrals: ALKA MAYERS [Primary Care Provider] - Instructions: Sore Throat, Adult (DC) Additional Instructions: followup with your Dr, and return meantime if not improving , any trouble swallowing or short of breath or other concerns Prescriptions: Azithromycin 250 mg [Zithromax 250 MG TABLET] 250 mg PO ZPACK #6 tablet
[2019-08-05] MEDS ORDERED: Zithromax 250 MG TABLET PO ONE (23:27)
[2019-08-05] MEDS ORDERED: Zithromax 250 MG TABLET ONE (23:40)
[2019-08-05 23:44] VITALS: BP 143/97; PULSE 76; O2SAT 98
== END 2019-08-05 23:53 | disposition home or self-care (01) ==
LOC: ED 22:44
DX: J02.9 Acute pharyngitis, unspecified (principal)
CPT/HCPCS: 99283; A9270-GY

== ENCOUNTER 2020-12-26 22:51 | Emergency (ER) | payer SELFPAY ==
[2020-12-26] MEDS ORDERED: Pepcid 20 MG VIAL IV ONE ×2 (23:02→23:10)
[2020-12-26] MEDS ORDERED: MORPHINE SULFATE 4 MG INJ IV ONE (23:02)
[2020-12-26] MEDS ORDERED: BABY ASPIRIN 81 MG CHEW PO ONE (23:02)
[2020-12-26] MEDS ORDERED: Reglan 10 MG/2 ML IV ONE (23:03)
--- NOTE | 2020-12-26 23:07 | ERPHSYRPT ---
- History of Present Illness Time Seen by Provider: 12/26/20 23:02 Historian: patient Exam Limitations: no limitations Physician History: 30 years old male with history of off-and-on chest pain for months was evaluated at [facility] multiple times in the past and is scheduled to have stress test later this month presented in the ER with chest pain in the center with radiation to right arm. Patient report it usually gets aggravated with activity/exertion especially at work and gets better with resting and today it was not going away and decided to report in the ER. He did take an aspirin prior to arrival and his pain went down from 6/10-3/10 dull aching to sharp. Denies any associated palpitations or shortness of breath. Denies any leg swelling. No fever chills or cough reported. Timing/Duration: week(s), intermittent, gradual onset, improved Activities at Onset: activity Quality: dullness, sharpness Location: central Chest Pain Radiation: arm Severity of Pain-Max: moderate Severity of Pain-Current: mild Modifying Factors: Improves With: rest. Worsens With: exertion Associated Symptoms: denies symptoms Prior Chest Pain/Cardiac Workup: no prior cardiac workup Nitro Today/Relief: no nitro taken today Aspirin Treatment Today: 81 mg x 1 Allergies/Adverse Reactions: ondansetron [From Zofran] Allergy (Verified 08/05/19 23:06) Headache Home Medications: Alprazolam [Xanax] 0.5 mg PO DAILY 07/27/19 [History] Hydrocodone Bit/Acetaminophen [[place] 10-325 Tablet] 10 mg PO DAILY 07/27/19 [History] PARoxetine HCl [Paxil] 10 mg PO DAILY 07/27/19 [History] Benazepril HCl 10 mg PO DAILY 08/05/19 [History] Hx Tetanus, Diphtheria Vaccination/Date Given: Yes Hx Influenza Vaccination/Date Given: Yes Hx Pneumococcal Vaccination/Date Given: No - Review of Systems Constitutional: No Symptoms Eyes: No Symptoms Ears, Nose, & Throat: No Symptoms Respiratory: No Symptoms Cardiac: Chest Pain Abdominal/Gastrointestinal: No Symptoms Genitourinary Symptoms: No Symptoms Musculoskeletal: No Symptoms Skin: No Symptoms Neurological: No Symptoms Psychological: No Symptoms Endocrine: No Symptoms Hematologic/Lymphatic: No Symptoms Immunological/Allergic: No Symptoms - Past Medical History Pertinent Past Medical History: No Cardiac History: Hypertension Psycho-Social History: Anxiety, Other Other Medical History: arachnoid cyst on brain - Past Surgical History Past Surgical History: Yes (nose) Gastrointestinal: Appendectomy - Social History Smoking Status: Never smoker Exposure to second hand smoke: No Drug Use: none Patient Lives Alone: Yes - Nursing Vital Signs Nursing Vital Signs: Initial Vital Signs O2 Sat by Pulse Oximetry 99 12/26/20 23:07 Pain Scale Pain Intensity 1 - Physical Exam General Appearance: no apparent distress, alert Eye Exam: PERRL/EOMI, eyes nml inspection Ears, Nose, Throat Exam: normal ENT inspection, pharynx normal Neck Exam: normal inspection, non-tender, supple, full range of motion Respiratory Exam: normal breath sounds, lungs clear, No chest tenderness Cardiovascular Exam: regular rate/rhythm, normal heart sounds Gastrointestinal/Abdomen Exam: soft, normal bowel sounds Back Exam: normal inspection, normal range of motion Extremity Exam: normal inspection, normal range of motion, pelvis stable Neurologic Exam: alert, oriented x 3, 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, 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 Skin Exam: normal color SpO2 Interpretation: normal SpO2: 99 O2 Delivery: Room Air - Course EKG Interpreted by Me: RATE ([id number]), NORMAL AXIS, NORMAL INTERVALS, NORMAL QRS Ordered Tests: Active Orders 24 hr Category Date Time Status Route Process Administrator STAT Care 12/26/20 23:03 Active EKG-ER Only STAT Care 12/26/20 23:02 Active IV Insertion STAT Care 12/26/20 23:02 Active CHEST 1 VIEW (PORTABLE) Stat Exams 12/26/20 23:02 Taken CBC W DIFF Stat Lab 12/26/20 23:30 Completed CMP Stat Lab 12/26/20 23:30 Completed D-DIMER QUANTITATIVE Stat Lab 12/26/20 23:30 Completed NT PRO BNP Stat Lab 12/26/20 23:30 Completed TROPONIN Q3H Lab 12/26/20 23:15 Completed TROPONIN Q3H Lab 12/27/20 02:15 Ordered TROPONIN Q3H Lab 12/27/20 05:15 Ordered TROPONIN Q3H Lab 12/27/20 08:15 Ordered TROPONIN Q3H Lab 12/27/20 11:15 Ordered Urine Triage Profile Stat Lab 12/26/20 23:02 Ordered Medication Summary Discontinued Medications Generic Name Dose Route Start Last Admin Trade Name Freq PRN Reason Stop Dose Admin Aspirin 324 mg 12/26/20 23:02 12/26/20 23:09 Baby Aspirin 81 Mg Chew PO 12/26/20 23:03 324 mg STAT ONE Administration Famotidine 20 mg 12/26/20 23:02 12/26/20 23:12 Pepcid 20 Mg Vial IV 12/26/20 23:03 20 mg STAT ONE Administration Famotidine Confirm 12/26/20 23:10 Pepcid 20 Mg Vial Administered 12/26/20 23:11 Dose 20 mg IV .STK-MED ONE Metoclopramide HCl 10 mg 12/26/20 23:03 12/26/20 23:11 Reglan 10 Mg/2 Ml IV 12/26/20 23:04 10 mg STAT ONE Administration Metoclopramide HCl Confirm 12/26/20 23:11 Reglan 10 Mg/2 Ml Administered 12/26/20 23:12 Dose 10 mg .ROUTE .STK-MED ONE Morphine Sulfate 4 mg 12/26/20 23:02 12/26/20 23:11 Morphine Sulfate 4 Mg Inj IV 12/26/20 23:03 4 mg STAT ONE Administration Morphine Sulfate Confirm 12/26/20 23:11 Morphine Sulfate 4 Mg Inj Administered 12/26/20 23:12 Dose 4 mg .ROUTE .STK-MED ONE Lab/Rad Data: Laboratory Result Diagrams 12/26/20 23:30 12/26/20 23:30 Laboratory Results 12/26/20 12/26/20 12/26/20 Range/Units 23:30 23:30 23:30 WBC 8.7 (4.0-10.5) K/mm3 RBC 4.64 (4.1-5.6) M/mm3 Hgb 14.7 (12.5-18.0) gm/dl Hct 42.2 (42-50) % MCV 90.9 (78-100) fl MCH 31.7 (26-32) pg MCHC 34.8 (32-36) g/dl RDW 12.6 (11.5-14.0) % Plt Count 241 (150-450) K/mm3 MPV 9.4 (7.5-11.0) fl Gran % 51.7 (36.0-66.0) % Eos # (Auto) 0.37 (0-0.5) Absolute Lymphs (auto) 2.83 (1.0-4.6) Absolute Monos (auto) 0.96 (0.0-1.3) Lymphocytes % 32.6 (24.0-44.0) % Monocytes % 11.1 (0.0-12.0) % Eosinophils % 4.3 (0.00-5.0) % Basophils % 0.3 (0.0-0.4) % Absolute Granulocytes 4.48 (1.4-6.9) Basophils # 0.03 (0-0.4) D-Dimer 230 (215-500) ng/mL Sodium 140 (137-145) mmol/L Potassium 3.3 L (3.5-5.1) mmol/L Chloride 102 (98-107) mmol/L Carbon Dioxide 26 (22-30) mmol/L Anion Gap 14.5 (5-15) MEQ/L BUN 16 (9-20) mg/dL Creatinine 0.96 (0.66-1.25) mg/dL Estimated GFR > 60.0 ML/MIN Glucose 101 (74-106) mg/dL Calcium 8.9 (8.4-10.2) mg/dL Total Bilirubin 0.50 (0.2-1.3) mg/dL AST 30 (17-59) U/L ALT 36 (0-50) U/L Alkaline Phosphatase 83 (38-126) U/L Troponin I (0.000-0.034) ng/mL NT-Pro-B Natriuret Pep 22.4 (0-450) pg/mL Serum Total Protein 7.5 (6.3-8.2) g/dL Albumin 4.4 (3.5-5.0) g/dL 12/26/20 Range/Units 23:15 WBC (4.0-10.5) K/mm3 RBC (4.1-5.6) M/mm3 Hgb (12.5-18.0) gm/dl Hct (42-50) % MCV (78-100) fl MCH (26-32) pg MCHC (32-36) g/dl RDW (11.5-14.0) % Plt Count (150-450) K/mm3 MPV (7.5-11.0) fl Gran % (36.0-66.0) % Eos # (Auto) (0-0.5) Absolute Lymphs (auto) (1.0-4.6) Absolute Monos (auto) (0.0-1.3) Lymphocytes % (24.0-44.0) % Monocytes % (0.0-12.0) % Eosinophils % (0.00-5.0) % Basophils % (0.0-0.4) % Absolute Granulocytes (1.4-6.9) Basophils # (0-0.4) D-Dimer (215-500) ng/mL Sodium (137-145) mmol/L Potassium (3.5-5.1) mmol/L Chloride (98-107) mmol/L Carbon Dioxide (22-30) mmol/L Anion Gap (5-15) MEQ/L BUN (9-20) mg/dL Creatinine (0.66-1.25) mg/dL Estimated GFR ML/MIN Glucose (74-106) mg/dL Calcium (8.4-10.2) mg/dL Total Bilirubin (0.2-1.3) mg/dL AST (17-59) U/L ALT (0-50) U/L Alkaline Phosphatase (38-126) U/L Troponin I < 0.012 (0.000-0.034) ng/mL NT-Pro-B Natriuret Pep (0-450) pg/mL Serum Total Protein (6.3-8.2) g/dL Albumin (3.5-5.0) g/dL - Progress Progress: improved Air Movement: good Progress Note: 12/27/20 00:50 30 years old is evaluated for chest pain. EKG showed normal sinus rhythm with no acute ischemic changes. Is given symptomatic treatment, on reevaluation patient is sleeping comfortably. He denies any pain upon waking him up. Negative troponin and D-dimer. Chest x-ray negative for any acute cardiopulmonary findings reviewed by me, official report is pending. Patient has similar chest pains multiple times in the past and this time chest pain was going since morning and one negative troponin is sufficient enough to rule MD. Patient does have follow-up appointment with cardiology and stress test which he is advised to keep. Do not know the exact cause of his pain could be some element of anxiety, acid reflux, recommended outpatient follow-up. Discussed signs symptoms of worsening needing return to ER which he seems understanding. Stable for discharge. Blood Culture(s) Obtained: No Antibiotics given: No Counseled pt/family regarding: lab results, diagnosis, need for follow-up, rad results, smoking cessation - Departure Departure Disposition: Home Clinical Impression: Atypical chest pain Condition: Stable Critical Care Time: No Referrals: ALKA MAYERS [Primary Care Provider] - (1-2 days for reevaluation) Instructions: Angina (DC), Chest Pain (DC) Additional Instructions: Keep appointment with your cardiology and for stress test. Follow-up with primary care for reevaluation. Return to ER for worsening chest pain or if develop palpitations/shortness of breath etc.
[2020-12-26] MEDS ORDERED: MORPHINE SULFATE 4 MG INJ ONE (23:11)
[2020-12-26] MEDS ORDERED: Reglan 10 MG/2 ML ONE (23:11)
[2020-12-26 23:51] LABS: Absolute Neutrophil Ct (ANC) 4.48 (1.4-6.9); BASOPHIL % 0.3 % (0.0-0.4); Basophil (Absolute #) 0.03 (0-0.4); Eosinophil % 4.3 % (0.00-5.0); Eosinophil (Absolute #) 0.37 (0-0.5); Hematocrit 42.2 % (42-50); Hemoglobin 14.7 gm/dl (12.5-18.0); Lymphocyte (Absolute #) 2.83 (1.0-4.6); Lymphocytes % 32.6 % (24.0-44.0); Mean Cell Volume 90.9 fl (78-100); Mean Corpuscular Hemoglobin 31.7 pg (26-32); Mean Corpuscular Hgb Concent. 34.8 g/dl (32-36); Mean Platelet Volume 9.4 fl (7.5-11.0); Monocyte (Absolute #) 0.96 (0.0-1.3); Monocytes % 11.1 % (0.0-12.0); Neutrophil % 51.7 % (36.0-66.0); Platelet Count 241 K/mm3 (150-450); Red Blood Count 4.64 M/mm3 (4.1-5.6); Red Cell Distribution Width 12.6 % (11.5-14.0); White Blood Count 8.7 K/mm3 (4.0-10.5)
[2020-12-27 00:09] LABS: ALBUMIN 4.4 g/dL (3.5-5.0); ALKALINE PHOSPHATASE 83 U/L (38-126); ANION GAP 14.5 MEQ/L (5-15); BLOOD UREA NITROGEN 16 mg/dL (9-20); CHLORIDE 102 mmol/L (98-107); Calcium 8.9 mg/dL (8.4-10.2); Carbon Dioxide 26 mmol/L (22-30); Creatinine 1 0.96 mg/dL (0.66-1.25); EST GLOMERULAR FILTRATION RATE > 60.0 ML/MIN; Glucose 101 mg/dL (74-106); NT PRO BNP 22.4 pg/mL (0-450); Potassium 3.3 mmol/L (3.5-5.1); SGOT/AST 30 U/L (17-59); SGPT/ALT 36 U/L (0-50); SODIUM 140 mmol/L (137-145); Total Protein 7.5 g/dL (6.3-8.2)
[2020-12-27 01:24] VITALS: BP 137/96; PULSE 72; O2SAT 97
--- NOTE | 2020-12-27 09:19 | XRAY ---
Indication: Chest pain. Comparison: February 16, 2019. Portable chest again demonstrates normal heart and lungs. Bony thorax intact. No new/acute findings.
== END 2020-12-27 01:24 | disposition home or self-care (01) ==
LOC: ED 22:51
DX: R07.89 Other chest pain (principal); Z79.899 Other long term (current) drug therapy; I10 Essential (primary) hypertension
CPT/HCPCS: 36000; 36415; 71045; 80053; 83880; 84484; 85025; 85379; 93005; 93041; 96374; 96375; 99284; J2270; A9270-GY

== ENCOUNTER 2021-05-29 16:37 | Emergency (ER) | payer OTHER ==
--- NOTE | 2021-05-29 16:46 | ERPHSYRPT ---
- History of Present Illness Time Seen by Provider: 05/29/21 16:46 Source: patient Exam Limitations: no limitations Physician History: This is a 30-year-old white male who has a history of hypertension and chronic back pain issues. He also has some anxiety issues. He does not see a pain management doctor. He states that some of his pain medication went down the drain and he is out of his [place] and Xanax. He did not fall or suffer any acute trauma to his back. He was seen at [facility] yesterday and they gave him a prescription for ibuprofen. It has not been helping. He states that the pain is shooting pain down his left lower leg and a burning fashion. He has not had any loss of bowel or urinary control. In addition, he states he has some neck pain as well that he feels pain kind of shooting down the arm but starts in his neck. Timing/Duration: day(s) Method of Injury: other Quality: burning, other (Mild numbness) Back Pain Location: C-spine, lumbar spine Back Pain Radiation: buttocks, upper legs Severity of Pain-Max: moderate Severity of Pain-Current: moderate Modifying Factors: Improves With: movement Associated Symptoms: denies symptoms, numbness in legs/feet, lower back pain, No urinary incontinence, No loss of bowel control, No problems urinating Previous symptoms: same symptoms as today, recently seen, recently treated Allergies/Adverse Reactions: ondansetron [From Zofran] Allergy (Verified 05/29/21 16:54) Headache Home Medications: ALPRAZolam [Xanax] 0.5 mg PO DAILY 07/27/19 [History] Hydrocodone/Acetaminophen [[place] 10-325 Tablet] 10 mg PO DAILY 07/27/19 [History] Benazepril HCl 10 mg PO DAILY 08/05/19 [History] Hx Tetanus, Diphtheria Vaccination/Date Given: Yes Hx Influenza Vaccination/Date Given: Yes Hx Pneumococcal Vaccination/Date Given: No Travel Risk - International Travel Have you traveled outside of the country in past 3 weeks: No - Coronavirus Screening Are you exhibiting any of the following symptoms?: No Close contact with a COVID-19 positive Pt in past 14-21 Days: No - Vaccine Status Have you recieved a Covid-19 vaccination: No - Review of Systems Constitutional: No Symptoms Eyes: No Symptoms Ears, Nose, & Throat: No Symptoms Respiratory: No Symptoms Cardiac: No Symptoms Abdominal/Gastrointestinal: No Symptoms Genitourinary Symptoms: No Symptoms Musculoskeletal: Back Pain, Neck Pain Skin: No Symptoms Neurological: No Symptoms Psychological: No Symptoms Endocrine: No Symptoms Hematologic/Lymphatic: No Symptoms Immunological/Allergic: No Symptoms All Other Systems: Reviewed and Negative - Past Medical History Pertinent Past Medical History: No Cardiac History: Hypertension Psycho-Social History: Anxiety, Other Other Medical History: arachnoid cyst on brain - Past Surgical History Past Surgical History: Yes (nose) Gastrointestinal: Appendectomy - Social History Smoking Status: Never smoker Exposure to second hand smoke: No Drug Use: none Patient Lives Alone: Yes - Nursing Vital Signs Nursing Vital Signs: Initial Vital Signs Temperature 97.9 F 05/29/21 16:59 Pulse Rate 102 H 05/29/21 16:59 Respiratory Rate 18 05/29/21 16:59 Blood Pressure 167/126 05/29/21 16:59 O2 Sat by Pulse Oximetry 99 05/29/21 16:59 Pain Scale Pain Intensity 10 - Physical Exam General Appearance: no apparent distress, alert, anxiety Eye Exam: PERRL/EOMI, eyes nml inspection Ears, Nose, Throat Exam: normal ENT inspection, moist mucous membranes Neck Exam: normal inspection, non-tender, supple, full range of motion Respiratory Exam: normal breath sounds, lungs clear, airway intact, No chest t enderness, No respiratory distress Cardiovascular Exam: regular rate/rhythm, normal heart sounds, normal peripheral pulses Gastrointestinal Exam: soft, normal bowel sounds, No tenderness Rectal Exam: not done Back Exam: normal inspection, normal range of motion, muscle spasm, No CVA tenderness, No vertebral tenderness Extremity Exam: normal inspection, normal range of motion, pelvis stable Neurologic Exam: alert, oriented x 3, cooperative, 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, normal mood/affect, nml cerebellar function, nml station & gait, sensation nml Skin Exam: normal color, warm, dry Lymphatic Exam: No adenopathy SpO2 Interpretation: normal O2 Delivery: Room Air - Course Nursing assessment & vital signs reviewed: Yes - Progress Counseled pt/family regarding: diagnosis, need for follow-up - Departure Departure Disposition: Home Clinical Impression: Acute exacerbation of chronic low back pain Condition: Stable Critical Care Time: No Referrals: ALKA MAYERS [Primary Care Provider] - Follow up/PCP as directed Additional Instructions: Take your medication as prescribed. Follow-up with your primary care/prescribing doctor tomorrow for further management. Prescriptions: Prednisone 10 mg [Deltasone 10 mg] 10 mg PO TID #12 tablet Orphenadrine Citrate 100 mg [Norflex 100 MG Tablet] 100 mg PO BID #14 tab
[2021-05-29 17:05] VITALS: O2SAT 99
[2021-05-29] MEDS ORDERED: Hydromorphone 1 mg/ml Injection IM ONE (17:42)
[2021-05-29] MEDS ORDERED: solu-MEDROL 125 MG, Sterile H2O 10 ml 2 ML IM ONE ×2 (17:43)
[2021-05-29] MEDS ORDERED: Compazine 10 MG/2 ML IM ONE (17:43)
[2021-05-29] MEDS ORDERED: Ativan 2 MG/1 ML VIAL IM ONE (17:44)
[2021-05-29] MEDS ORDERED: Ativan 2 MG/1 ML VIAL ONE (17:46)
[2021-05-29] MEDS ORDERED: solu-MEDROL ONE (17:47)
[2021-05-29] MEDS ORDERED: Hydromorphone 1 mg/ml Injection ONE (17:47)
[2021-05-29] MEDS ORDERED: Compazine 10 MG/2 ML ONE (17:47)
[2021-05-29 17:57] VITALS: BP 163/110; PULSE 96
== END 2021-05-29 18:06 | disposition home or self-care (01) ==
LOC: ED 16:37
DX: M54.50 Low back pain, unspecified (principal); I10 Essential (primary) hypertension; G89.29 Other chronic pain; M54.2 Cervicalgia; Z79.891 Long term (current) use of opiate analgesic
CPT/HCPCS: 96372; 99284; J1170; J2060; J2930

== ENCOUNTER 2023-01-12 22:49 | Emergency (ER) | payer BC, OTHER ==
[2023-01-12] MEDS ORDERED: XYLOCAINE 1% HCL 20 ML MDV IJ ONE (22:50)
[2023-01-12 23:56] VITALS: TEMP 98.5; O2SAT 98
[2023-01-13] MEDS ORDERED: TORAdol 30 mg Injection IM ONE (00:43)
[2023-01-13] MEDS ORDERED: Rocephin 1000 MG INJ IM ONE (00:44)
[2023-01-13] MEDS ORDERED: Rocephin 1000 MG INJ ONE (00:46)
[2023-01-13] MEDS ORDERED: TORAdol 30 mg Injection ONE (00:46)
[2023-01-13 01:07] VITALS: BP 121/96; PULSE 81; RESP 20
--- NOTE | 2023-01-13 01:25 | ERPHSYRPT ---
- History of Present Illness Time Seen by Provider: 01/13/23 01:25 Source: patient Exam Limitations: no limitations Patient Subjective Stated Complaint: smashed hand with sledge hammer yesterday trying to straigten out a lawnmower blade. Triage Nursing Assessment: pt ambulated into ER without diff, friend at bedside. Pt alert and oriented x 4. On 01/11/23 at approx 2130, pt was straightening a mower blade with a sledgehammer and missed the blade and hit his left hand. Pt has tiny laceration to the top of left hand. Pt has swelling to top of left hand, bruising noted there and to the ring finger, middle finger and thumb. Pt has limited movement fingers/thumb or hand and c/o pain and tenderness with movement. Pt was seen at [facility] ER on 01/11/23, per pt xrays were taken but no fractures seen and left hand was Obey wrapped. Physician History: Patient is a 32-year-old male presents to our ED with pain to his left hand. Patient states he "smashed" his left hand with a 5 pound sledgehammer yesterday while working on a lawnmower blade. Patient went to an outside hospital. Patient had an x-ray. X-rays were reported as negative. Patient had a small superficial laceration to the dorsum of the left hand. Patient was prescribed antibiotics. Patient has not taken his antibiotics as prescribed. Patient has not kept his left upper extremity elevated. Patient is here because the hand is swollen and more tender. No systemic manifestations. No other injuries reported. Significant other at bedside. Patient voices no other complaints or concerns at this time. Portions of this note were created with voice recognition technology. There may be grammatical, spelling, punctuation or sound alike errors Occurred: yesterday Method of Injury: direct blow Quality: constant Severity of Pain-Max: moderate Severity of Pain-Current: mild Extremities Pain Location: hand: left Modifying Factors: Improves With: movement Associated Symptoms: none Allergies/Adverse Reactions: ondansetron [From Zofran] Allergy (Verified 01/13/23 00:08) Headache Home Medications: ALPRAZolam [Xanax] 1 mg PO DAILY 07/27/19 [History] Hydrocodone/Acetaminophen [Warren 10-325 Tablet] 10 mg PO DAILY 07/27/19 [History] Benazepril HCl 20 mg PO DAILY 08/05/19 [History] Amlodipine Besylate 5 mg [Norvasc 5 mg] 5 mg PO DAILY 01/13/23 [History] Escitalopram Oxalate [Lexapro] 20 mg PO DAILY 01/13/23 [History] Gabapentin 600 mg PO DAILY 01/13/23 [History] Hx Tetanus, Diphtheria Vaccination/Date Given: Yes Hx Influenza Vaccination/Date Given: No Hx Pneumococcal Vaccination/Date Given: No Immunizations Up to Date: Yes Travel Risk - International Travel Have you traveled outside of the country in past 3 weeks: No - Coronavirus Screening Are you exhibiting any of the following symptoms?: No Close contact with a COVID-19 positive Pt in past 14-21 Days: No - Vaccine Status Have you recieved a Covid-19 vaccination: No - Review of Systems Constitutional: No Symptoms, No Fever, No Chills Eyes: No Symptoms Ears, Nose, & Throat: No Symptoms Respiratory: No Symptoms, No Cough, No Dyspnea Cardiac: No Symptoms, No Chest Pain, No Edema, No Syncope Abdominal/Gastrointestinal: No Symptoms, No Abdominal Pain, No Nausea, No Vomiting, No Diarrhea Genitourinary Symptoms: No Symptoms, No Dysuria Musculoskeletal: No Symptoms, No Back Pain, No Neck Pain Skin: No Symptoms, No Rash Neurological: No Symptoms, No Dizziness, No Focal Weakness, No Sensory Changes Psychological: No Symptoms Endocrine: No Symptoms Hematologic/Lymphatic: No Symptoms Immunological/Allergic: No Symptoms All Other Systems: Reviewed and Negative - Past Medical History Pertinent Past Medical History: No Cardiac History: Hypertension Psycho-Social History: Anxiety, Bipolar, Depression, Other Other Medical History: arachnoid cyst on brain, PTSD, multiple personality disorder, explosive behavior disorder, parvo - Past Surgical History Past Surgical History: Yes (nose) Gastrointestinal: Appendectomy Other Surgical History: fx nose-reset - Social History Smoking Status: Former smoker Exposure to second hand smoke: No Drug Use: none Patient Lives Alone: Yes - Nursing Vital Signs Nursing Vital Signs: Initial Vital Signs Temperature 98.5 F 01/12/23 23:54 Pulse Rate 102 H 01/12/23 23:54 Respiratory Rate 18 01/12/23 23:54 Blood Pressure 151/99 01/12/23 23:54 O2 Sat by Pulse Oximetry 98 01/12/23 23:54 Pain Scale Pain Intensity 8 - Physical Exam General Appearance: no apparent distress, alert Eyes, Ears, Nose, Throat Exam: moist mucous membranes Neck Exam: non-tender, supple Cardiovascular/Respiratory Exam: chest non-tender, normal breath sounds, regular rate/rhythm, no respiratory distress Abdominal Exam: non-tender, soft, No guarding Back Exam: normal inspection, normal range of motion, No vertebral tenderness Shoulder Exam: normal inspection, non-tender, no evidence of injury, normal ROM Elbow/Forearm Exam: normal inspection, non-tender, no evidence of injury, normal ROM Wrist Exam: normal inspection, non-tender, no evidence of injury, normal ROM Hand Exam: abrasions (Superficial laceration dorsal aspect of left hand. No signs of active infection. No cellulitis. No lymphadenopathy. No lymphangitis.), limited ROM (Limited range of motion due to pain. Compartments are soft cap refill less than 2 seconds. The involved left upper extremity is neurovascular intact distally.), swelling Neuro/Tendon Exam: normal sensation, normal motor functions Mental Status Exam: alert, oriented x 3, cooperative Skin Exam: normal color, warm, dry SpO2 Interpretation: normal SpO2: 98 O2 Delivery: Room Air - Course Nursing assessment & vital signs reviewed: Yes - Radiology Exams Hand X-ray Interpretation: Interpreted by me (No fracture dislocations. Soft tissue swelling) Ordered Tests: Active Orders 24 hr Category Date Time Status HAND (MINIMUM 3 VIEWS) Stat Exams 01/13/23 00:33 Taken Medication Summary Discontinued Medications Generic Name Dose Route Start Last Admin Trade Name Livia PRN Reason Stop Dose Admin Ceftriaxone Sodium 1,000 mg 01/13/23 00:44 01/13/23 00:54 Ceftriaxone Sodium 1000 Mg Inj Vial IM 01/13/23 00:45 1,000 mg STAT ONE Administration Ceftriaxone Sodium Confirm 01/13/23 00:46 Ceftriaxone Sodium 1000 Mg Inj Vial Administered 01/13/23 00:47 Dose 1,000 mg .ROUTE .STK-MED ONE Ketorolac Tromethamine 30 mg 01/13/23 00:43 01/13/23 00:54 Ketorolac Tromethamine 30 Mg/Ml Inj IM 01/13/23 00:44 30 mg STAT ONE Administration Ketorolac Tromethamine Confirm 01/13/23 00:46 Ketorolac Tromethamine 30 Mg/Ml Inj Administered 01/13/23 00:47 Dose 30 mg .ROUTE .Storypanda ONE - Progress Progress: improved Progress Note: Patient 32-year-old male presents to our ED for evaluation of pain to his left hand. Patient has not taken the prescribed medications as he has not had the funds to buy his antibiotics. Patient awaiting for his check. Patient given a dose of IM antibiotics in our ED. An IM dose of Toradol given for pain control. Patient advised to elevate hand. We wrapped patient's hand and elevated here in our ED. We repeated the x-ray to assure there is no missed fractures. No obvious fractures on our x-ray today. No indication for further work-up. Will discharge home. Patient given referral to orthopedic clinic for follow-up. Patient voices no other complaints or concerns at this time. Portions of this note were created with voice recognition technology. There may be grammatical, spelling, punctuation or sound alike errors Complexity of problems addressed is low acute uncomplicated. Complexity data reviewed and analyzed is moderate. Dr. Blanco independently reviewed the hand x-ray. Clinical correlation made between physical exam finding and x-ray finding. Risk of complication and or risk of morbidity/mortality of patient management is moderate. A prescription for Toradol for the patient's pharmacy. Patient referred to orthopedic clinic. Patient states he is ready for discharge. Vital stable. Plan of care established for shared decision making. Time to discharge patient approximately 15 minutes. No social determinants of health present to impede follow-up. Patient voices no other complaints or concerns at this time. Portions of this note were created with voice recognition technology. There may be grammatical, spelling, punctuation or sound alike errors Patient has history of anxiety. Patient requesting Xanax p.o. Patient states he ran out of his anxiolytic. Patient instructed to keep his hand elevated. Patient will follow-up in Ortho clinic as planned. 01/13/23 01:37 Counseled pt/family regarding: diagnosis, need for follow-up, rad results - Departure Departure Disposition: Home Clinical Impression: Hand swelling, Hand contusion, Hand pain Condition: Stable Critical Care Time: No Referrals: ALKA MAYERS [Primary Care Provider] - Follow up/PCP as directed Additional Instructions: Discharge/Care Plan MASHA LAU was seen on 01/13/23 in the Emergency Room. The patient was counseled regarding Diagnosis,Lab results, Imaging studies, need for follow up and when to return to the Emergency Room. Prescriptions given: Discharge Note I have spoken with the patient and/or caregivers. I have explained the patient's condition, diagnosis and treatment plan based on the information available to me at this time. I have answered the patient's and/or caregiver's questions and addressed any concerns. The patient and/or caregivers have as good understanding of the patient's diagnosis, condition and treatment plan as can be expected at this point. The vital signs have been stable. The patient's condition is stable and appropriate for discharge from the emergency department. The patient will pursue further outpatient evaluation with the primary care physician or other designated or consulting physician as outlined in the discharge instructions. The patient and/or caregivers are agreeable to this plan of care and follow-up instructions have been explained in detail. The patient and/or caregivers have received these instruction. The patient/and or caregivers are aware that any significant change in condition or worsening of symptoms should prompt an immediate return to this or the closest emergency department or call 911. Prescriptions: Ketorolac Trometh 10 mg Tab [TORAdol 10 MG TABLET] 10 mg PO TID 5 Days #15 tablet Outpatient Orders: Ortho Referral Time Frame: 1 Day, Facility: [facility]. Hosp, Location: [facility]
[2023-01-13] MEDS ORDERED: xanAX 0.25 MG PO ONE (01:36)
[2023-01-13] MEDS ORDERED: xanAX 0.25 MG ONE (01:37)
--- NOTE | 2023-01-13 08:59 | XRAY ---
Indication: Pain and swelling following injury. Comparison: None 3 view left hand demonstrates posterior soft tissue swelling. No other bony, articular, or soft tissue abnormalities.
== END 2023-01-13 01:43 | disposition home or self-care (01) ==
LOC: ED 22:49
DX: S60.222A Contusion of left hand, initial encounter (principal); W27.8XXA Contact with other nonpowered hand tool, initial encounter; M79.89 Other specified soft tissue disorders; I10 Essential (primary) hypertension; Z79.899 Other long term (current) drug therapy; Z28.310 Unvaccinated for COVID-19; Z91.141 Patient's other noncompliance with medication regimen due to financial hardship
CPT/HCPCS: 73130; 96372; 99284; J0696; J1885; A9270-GY

== ENCOUNTER 2023-03-26 09:55 | Emergency (ER) | payer SELFPAY ==
--- NOTE | 2023-03-26 10:10 | ERPHSYRPT ---
- History of Present Illness Time Seen by Provider: 03/26/23 10:10 Historian: patient Exam Limitations: no limitations Physician History: This is a 32-year-old white male patient whose had an appendectomy in the past and presents with 3-day history of abdominal pain that is described as crampy and pulling. It has been happening the last 3 mornings and it has persisted since it started happening this morning and he was not able to sleep much. He has had he has had milder form of this in the past but typically it only lasts a day or day and a half and goes away. Patient has had associated vomiting and diarrhea. He has not had any fevers. He denies cough. He denies chest pain. Patient has a history of anxiety, bipolar disorder, PTSD, multiple personality disorder and explosive behavior disorder. Timing/Duration: day(s) (:3) Quality: cramping, other Abdominal Pain Onset Location: generalized abdomen Pain Radiation: no radiation Severity of Pain-Max: moderate Severity of Pain-Current: moderate Modifying Factors: Improves With: vomiting, other (Diarrhea) Associated Symptoms: diarrhea, loss of appetite, nausea, vomiting Previous symptoms: no prior history, no recent treatment Allergies/Adverse Reactions: ondansetron [From Zofran] Allergy (Verified 03/26/23 10:14) Headache Patient states generic Hx Tetanus, Diphtheria Vaccination/Date Given: Yes (3 months ago in [place]) Hx Influenza Vaccination/Date Given: No Hx Pneumococcal Vaccination/Date Given: No Travel Risk - International Travel Have you traveled outside of the country in past 3 weeks: No - Coronavirus Screening Are you exhibiting any of the following symptoms?: No Close contact with a COVID-19 positive Pt in past 14-21 Days: No - Vaccine Status Have you recieved a Covid-19 vaccination: No - Review of Systems Constitutional: No Symptoms Eyes: No Symptoms Ears, Nose, & Throat: No Symptoms Respiratory: No Symptoms Cardiac: No Symptoms Abdominal/Gastrointestinal: Abdominal Pain, Nausea, Vomiting, Diarrhea, Appetite Changes Genitourinary Symptoms: No Symptoms Musculoskeletal: No Symptoms Skin: No Symptoms Neurological: No Symptoms Psychological: No Symptoms Endocrine: No Symptoms Hematologic/Lymphatic: No Symptoms Immunological/Allergic: No Symptoms All Other Systems: Reviewed and Negative - Past Medical History Pertinent Past Medical History: Yes Neurological History: No Pertinent History ENT History: No Pertinent History Cardiac History: Hypertension Respiratory History: No Pertinent History Endocrine Medical History: No Pertinent History Musculoskeletal History: No Pertinent History GI Medical History: No Pertinent History History: No Pertinent History Psycho-Social History: Anxiety, Bipolar, Depression, Other Male Reproductive Disorders: No Pertinent History Other Medical History: arachnoid cyst on brain, PTSD, multiple personality disorder, explosive behavior disorder, parvo - Past Surgical History Past Surgical History: Yes Neuro Surgical History: No Pertinent History Cardiac: No Pertinent History Respiratory: No Pertinent History Gastrointestinal: Appendectomy Genitourinary: No Pertinent History Musculoskeletal: No Pertinent History Male Surgical History: No Pertinent History Other Surgical History: fx nose-reset - Social History Smoking Status: Never smoker Exposure to second hand smoke: No Drug Use: none Patient Lives Alone: Yes - Nursing Vital Signs Nursing Vital Signs: Initial Vital Signs Temperature 98.3 F 03/26/23 10:15 Pulse Rate 73 03/26/23 10:15 Respiratory Rate 18 03/26/23 10:15 Blood Pressure 171/127 03/26/23 10:15 O2 Sat by Pulse Oximetry 97 03/26/23 10:15 Pain Scale Pain Intensity 5 - Physical Exam General Appearance: no apparent distress, alert, anxiety Eye Exam: PERRL/EOMI, eyes nml inspection Ears, Nose, Throat Exam: normal ENT inspection, moist mucous membranes Neck Exam: normal inspection, non-tender, supple, full range of motion Respiratory Exam: normal breath sounds, lungs clear, airway intact, No chest tenderness, No respiratory distress Cardiovascular Exam: regular rate/rhythm, normal heart sounds, normal peripheral pulses Gastrointestinal/Abdomen Exam: soft, normal bowel sounds, tenderness, guarding (Diffuse mild diffuse to palpation), No rebound Rectal Exam: not done Back Exam: normal inspection, normal range of motion, No CVA tenderness, No vertebral tenderness Extremity Exam: normal inspection, normal range of motion, pelvis stable Neurologic Exam: alert, oriented x 3, 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, 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, normal mood/affect, nml cerebellar function, nml station & gait, sensation nml Skin Exam: normal color, warm, dry Lymphatic Exam: No adenopathy SpO2 Interpretation: normal O2 Delivery: Room Air - Course Nursing assessment & vital signs reviewed: Yes Ordered Tests: Active Orders 24 hr Category Date Time Status IV Insertion STAT Care 03/26/23 10:25 Active ABDOMEN AND PELVIS W/0 CONTRAS [CT] Stat Exams 03/26/23 10:25 Completed AMYLASE Stat Lab 03/26/23 10:00 Completed CBC W DIFF Stat Lab 03/26/23 10:00 Completed CMP Stat Lab 03/26/23 10:00 Completed LIPASE Stat Lab 03/26/23 10:00 Completed Lactic Acid Stat Lab 03/26/23 10:35 Completed Medication Summary Discontinued Medications Generic Name Dose Route Start Last Admin Trade Name Freq PRN Reason Stop Dose Admin Sodium Chloride 1,000 mls @ 999 mls/hr 03/26/23 10:25 03/26/23 10:35 Sodium Chloride 0.9% 1000 Ml IV 03/26/23 11:25 999 mls/hr .Q1H1M STA Administration Sodium Chloride Confirm 03/26/23 10:34 Sodium Chloride 0.9% 1000 Ml Administered 03/26/23 10:35 Dose 1,000 mls @ ud .ROUTE .STK-MED ONE Pantoprazole Sodium 40 mg 03/26/23 10:25 03/26/23 10:37 Pantoprazole 40 Mg Vial IV 03/26/23 10:26 40 mg STAT ONE Administration Pantoprazole Sodium Confirm 03/26/23 10:34 Pantoprazole 40 Mg Vial Administered 03/26/23 10:35 Dose 40 mg IV .STK-MED ONE Prochlorperazine Edisylate 5 mg 03/26/23 10:25 03/26/23 10:36 Prochlorperazine Edisylate 10 Mg/2 Ml Vial IV 03/26/23 10:26 5 mg STAT ONE Administration Prochlorperazine Edisylate Confirm 03/26/23 10:34 Prochlorperazine Edisylate 10 Mg/2 Ml Vial Administered 03/26/23 10:35 Dose 10 mg .ROUTE .STK-MED ONE Lab/Rad Data: Laboratory Result Diagrams 03/26/23 10:00 03/26/23 10:00 Laboratory Results 03/26/23 03/26/23 03/26/23 Range/Units 10:35 10:00 10:00 WBC 6.9 (4.0-10.5) x10^3/uL RBC 5.05 (4.1-5.6) x10^6/uL Hgb 16.0 (12.5-18.0) g/dL Hct 45.6 (42-50) % MCV 90.3 (78-100) fL MCH 31.7 (26-32) pg MCHC 35.1 (32-36) g/dL RDW 11.6 (11.5-14.0) % Plt Count 246 (150-450) x10^3/uL MPV 9.5 (7.5-11.0) fL Gran % 71.8 H (36.0-66.0) % Immature Gran % (Auto) 0.4 (0.00-0.4) % Nucleat RBC Rel Count 0.0 (0.00-0.1) % Eos # (Auto) 0.01 (0-0.5) x10^3/uL Immature Gran # (Auto) 0.03 (0.00-0.03) x10^3u/L Absolute Lymphs (auto) 1.38 (1.0-4.6) x10^3/uL Absolute Monos (auto) 0.48 (0.0-1.3) x10^3/uL Absolute Nucleated RBC 0.00 (0.00-0.01) x10^3u/L Lymphocytes % 20.1 L (24.0-44.0) % Monocytes % 7.0 (0.0-12.0) % Eosinophils % 0.1 (0.00-5.0) % Basophils % 0.6 (0.0-0.4) % Absolute Granulocytes 4.91 (1.4-6.9) x10^3/uL Basophils # 0.04 (0-0.4) x10^3/uL Sodium 143 (137-145) mmol/L Potassium 3.6 (3.5-5.1) mmol/L Chloride 103 (98-107) mmol/L Carbon Dioxide 28 (22-30) mmol/L Anion Gap 15.9 H (5-15) MEQ/L BUN 14 (9-20) mg/dL Creatinine 0.76 (0.66-1.25) mg/dL Estimated GFR > 60.0 ML/MIN Glucose 115 H (74-106) mg/dL Lactic Acid 1.7 (0.4-2.0) Calcium 8.9 (8.4-10.2) mg/dL Total Bilirubin 0.70 (0.2-1.3) mg/dL AST 29 (17-59) U/L ALT 43 (0-50) U/L Alkaline Phosphatase 81 (38-126) U/L Serum Total Protein 7.5 (6.3-8.2) g/dL Albumin 4.5 (3.5-5.0) g/dL Amylase 60 (30-110) U/L Lipase 56 (23-300) U/L - Progress Progress: improved, pain not gone completely, re-examined Progress Note: 03/26/23 10:44 This patient's medical issue is 1 of moderate complexity the level complexity in the work-up performed is based on review of the patient's past medical history, patient's medication list, review of the patient's drug allergy list, history of present illness and physical findings on examination. Work-up in this patient includes placement of intravenous line, infusion of 1 L normal saline solution, infusion of Compazine 5 mg intravenously, infusion of Dilaudid 1 mg intravenously, infusion of 40 mg Protonix intravenously, CBC, CMP, amylase, lipase, urinalysis, CT scan of the abdomen and pelvis without contrast. 03/26/23 11:44 CT scan of the abdomen pelvis without contrast was interpreted by the radiologist and I reviewed the impression. There is no evidence of any acute intra-abdominal or intrapelvic findings. Counseled pt/family regarding: lab results, diagnosis, need for follow-up, rad results Medical Desision Making - Diagnostic Testing Diagnostic test were ordered, analyzed, and reviewed by me: Yes Radiological Interpretation: Reviewed by me, Teleradiologist Report - Risk of complications Low Risk: Low risk of morbidity from additional dx testing or treatment - Departure Departure Disposition: Home Clinical Impression: Abdominal pain Condition: Stable Critical Care Time: No Additional Instructions: Drink plenty of fluids. Use Tylenol and ibuprofen for pain control. Follow-up with your primary care provider today by phone to make arranges for follow-up appointment in the next 3 to 5 days. Prescriptions: Promethazine HCl 25 mg [Phenergan 25 mg] 25 mg PO Q8H PRN PRN #10 tablet PRN Reason: Nausea/Vomiting
[2023-03-26 10:20] VITALS: TEMP 98.3
[2023-03-26] MEDS ORDERED: Sodium Chloride 0.9% 1000 ML 1,000 ML IV STA (10:25)
[2023-03-26] MEDS ORDERED: Compazine 10 MG/2 ML IV ONE (10:25)
[2023-03-26] MEDS ORDERED: PROTONIX 40 MG IV IV ONE ×2 (10:25→10:34)
[2023-03-26] MEDS ORDERED: Compazine 10 MG/2 ML ONE (10:34)
[2023-03-26] MEDS ORDERED: Sodium Chloride 0.9% 1000 ML 1,000 ML ONE (10:34)
[2023-03-26 11:02] LABS: Absolute Neutrophil Ct (ANC) 4.91 x10^3/uL (1.4-6.9); BASOPHIL % 0.6 % (0.0-0.4); Basophil (Absolute #) 0.04 x10^3/uL (0-0.4); Eosinophil % 0.1 % (0.00-5.0); Eosinophil (Absolute #) 0.01 x10^3/uL (0-0.5); Hematocrit 45.6 % (42-50); IMMATURE GRAN # 0.03 x10^3u/L (0.00-0.03); IMMATURE GRAN % 0.4 % (0.00-0.4); Lymphocyte (Absolute #) 1.38 x10^3/uL (1.0-4.6); Lymphocytes % 20.1 % (24.0-44.0); Mean Cell Volume 90.3 fL (78-100); Mean Corpuscular Hemoglobin 31.7 pg (26-32); Mean Corpuscular Hgb Concent. 35.1 g/dL (32-36); Mean Platelet Volume 9.5 fL (7.5-11.0); Monocyte (Absolute #) 0.48 x10^3/uL (0.0-1.3); Neutrophil % 71.8 % (36.0-66.0); Platelet Count 246 x10^3/uL (150-450); Red Blood Count 5.05 x10^6/uL (4.1-5.6); Red Cell Distribution Width 11.6 % (11.5-14.0); White Blood Count 6.9 x10^3/uL (4.0-10.5)
--- NOTE | 2023-03-26 11:10 | XRAY ---
Indication: Abdomen pain and vomiting. Multiple contiguous images obtained through the abdomen and pelvis without contrast. Comparison: None Lung bases demonstrate tiny left base calcified granuloma. Heart not enlarged. Noncontrasted stomach and bowel loops appear nonobstructed. Previous appendectomy. Nonobstructing right renal punctate calculus. Left kidney demonstrates pelvocaliectasis without calculus/calcification. No free fluid/air. A few tiny splenic calcified granulomas. Remaining liver, gallbladder, pancreas, spleen, adrenal glands, kidneys, ureters, bladder, and aorta are unremarkable for noncontrast exam. Osseous structures intact. No ventral or inguinal hernias. Impression: Nonobstructing right renal punctate calculus, left renal pelvocaliectasis, and old granulomatous disease. Remaining CT abdomen/pelvis without contrast exam is negative.
[2023-03-26 11:16] LABS: ALBUMIN 4.5 g/dL (3.5-5.0); ALKALINE PHOSPHATASE 81 U/L (38-126); AMYLASE 60 U/L (30-110); ANION GAP 15.9 MEQ/L (5-15); BLOOD UREA NITROGEN 14 mg/dL (9-20); CHLORIDE 103 mmol/L (98-107); Calcium 8.9 mg/dL (8.4-10.2); Carbon Dioxide 28 mmol/L (22-30); Creatinine 1 0.76 mg/dL (0.66-1.25); EST GLOMERULAR FILTRATION RATE > 60.0 ML/MIN; Glucose 115 mg/dL (74-106); LIPASE 56 U/L (23-300); Potassium 3.6 mmol/L (3.5-5.1); SGOT/AST 29 U/L (17-59); SGPT/ALT 43 U/L (0-50); SODIUM 143 mmol/L (137-145); Total Protein 7.5 g/dL (6.3-8.2)
[2023-03-26 11:45] LABS: Appearance CLEAR (CLEAR); Bilirubin SMALL (NEGATIVE); Glucose NEGATIVE (NEGATIVE); Ketones TRACE (NEGATIVE); Nitrite NEGATIVE (NEGATIVE); Ph 5.5 (5-6); Protein,Urine Dip 100 (Negative); RBC LARGE Ery/ul (0-5); Specific Gravity 1.025 (1.005-1.025); Urobilinogen 0.2 mg/dL (0-1)
[2023-03-26 11:48] LABS: ADD URINE CULTURE? YES (NO); Bacteria None Seen /HPF (None Seen); Epithelial Cells None Seen /HPF (None Seen); WBC 0-2 /HPF (0-5)
[2023-03-26 11:54] VITALS: BP 170/102; PULSE 68; RESP 16; O2SAT 99
== END 2023-03-26 11:59 | disposition home or self-care (01) ==
LOC: ED 09:55
DX: R10.84 Generalized abdominal pain (principal); R11.2 Nausea with vomiting, unspecified; R19.7 Diarrhea, unspecified; I10 Essential (primary) hypertension; Z28.310 Unvaccinated for COVID-19
CPT/HCPCS: 36000; 36415; 74176; 80053; 81015; 82150; 83605; 83690; 85025; 87086; 96374; 96375; 99284

== ENCOUNTER 2024-01-10 23:49 | Emergency (ER) | payer OTHER ==
--- NOTE | 2024-01-11 00:03 | ERPHSYRPT ---
- History of Present Illness Time Seen by Provider: 01/11/24 00:02 Source: patient Exam Limitations: no limitations Physician History: This is a 33-year-old white male patient has chronic back issues and is scheduled to see a pain specialist in 3 weeks. He was seen at [facility] emergency department given a prescription for NSAIDs and a muscle relaxant. In the last 2 days his pain is getting worse despite this treatment. He did not fall or have any acute traumatic injury. However, he has been working. Patient drove himself to to the emergency department but can get a ride home. Patient states he had an MRI performed in July 2023 which showed significant disc disease. He does not have any numbness or tingling in his feet. He does not have urinary or bowel incontinence. Timing/Duration: day(s), worse Quality: sharp, stabbing Back Pain Location: lumbar spine Severity of Pain-Max: moderate Modifying Factors: Improves With: movement Associated Symptoms: lower back pain, muscle spasms, No urinary incontinence, No loss of bowel control, No numbness in legs/feet Previous symptoms: same symptoms as today, recently seen Allergies/Adverse Reactions: ondansetron [From Zofran] Allergy (Verified 01/11/24 00:09) Headache Patient states generic Home Medications: Amlodipine Besylate 10 mg PO DAILY 01/11/24 [History] Diclofenac Sodium 50 mg [Voltaren 50 mg] 50 mg PO TID 01/11/24 [History] Orphenadrine Citrate 100 mg [Norflex 100 MG Tablet] 100 mg PO BID PRN 01/11/24 [History] Hx Tetanus, Diphtheria Vaccination/Date Given: Yes (3 months ago in [place]) Hx Influenza Vaccination/Date Given: No Hx Pneumococcal Vaccination/Date Given: No Travel Risk - International Travel Have you traveled outside of the country in past 3 weeks: No - Emerging Infectious Disease Are you exhibiting symptoms associated with any current EIDs: No - Review of Systems Constitutional: No Symptoms Eyes: No Symptoms Ears, Nose, & Throat: No Symptoms Respiratory: No Symptoms Cardiac: No Symptoms Abdominal/Gastrointestinal: No Symptoms Genitourinary Symptoms: No Symptoms Musculoskeletal: Back Pain Skin: No Symptoms Neurological: No Symptoms Psychological: No Symptoms Endocrine: No Symptoms Hematologic/Lymphatic: No Symptoms Immunological/Allergic: No Symptoms All Other Systems: Reviewed and Negative - Past Medical History Pertinent Past Medical History: Yes Neurological History: No Pertinent History ENT History: No Pertinent History Cardiac History: Hypertension Respiratory History: No Pertinent History Endocrine Medical History: No Pertinent History Musculoskeletal History: No Pertinent History GI Medical History: No Pertinent History History: No Pertinent History Psycho-Social History: Anxiety, Bipolar, Depression, Other Male Reproductive Disorders: No Pertinent History Other Medical History: arachnoid cyst on brain, PTSD, multiple personality disorder, explosive behavior disorder, parvo - Past Surgical History Past Surgical History: Yes Neuro Surgical History: No Pertinent History Cardiac: No Pertinent History Respiratory: No Pertinent History Gastrointestinal: Appendectomy Genitourinary: No Pertinent History Musculoskeletal: No Pertinent History Male Surgical History: No Pertinent History Other Surgical History: fx nose-reset - Social History Smoking Status: Never smoker Exposure to second hand smoke: No Drug Use: none Patient Lives Alone: Yes - Nursing Vital Signs Nursing Vital Signs: Initial Vital Signs Temperature 98.2 F 01/11/24 00:13 Pulse Rate 83 01/11/24 00:13 Respiratory Rate 18 01/11/24 00:13 Blood Pressure 203/130 01/11/24 00:13 O2 Sat by Pulse Oximetry 99 01/11/24 00:13 Pain Scale Pain Intensity [Back] 10 Pain Intensity 10 - Physical Exam General Appearance: mild distress, alert, anxiety Eye Exam: PERRL/EOMI, eyes nml inspection Ears, Nose, Throat Exam: normal ENT inspection, moist mucous membranes Neck Exam: normal inspection, non-tender, supple, full range of motion Respiratory Exam: airway intact, No chest tenderness, No respiratory distress Gastrointestinal Exam: tenderness Rectal Exam: not done Back Exam: normal range of motion, vertebral tenderness, muscle spasm Extremity Exam: normal inspection, normal range of motion, pelvis stable Neurologic Exam: alert, oriented x 3, cooperative, 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 The workup in this patient does not require any laboratory radiographic studies. The patient has an MRI from approximately 7 months ago and has not had any traumatic injuries. We will provide him with injectable steroid, Dilaudid, and provide the patient with an intra muscular Compazine dose if he is able to get a ride home. 01/11/24 00:49 Counseled pt/family regarding: diagnosis, need for follow-up Medical Desision Making - Diagnostic Testing Diagnostic test were ordered, analyzed, and reviewed by me: No - Risk of complications Low Risk: Low risk of morbidity from additional dx testing or treatment The pt has a mod risk of morbidity or mortality based on: Need for prescription drug management - Departure Departure Disposition: Home Clinical Impression: Acute on chronic back pain Condition: Stable Critical Care Time: No Referrals: MELITA CAPELLAN [employer] [Primary Care Provider] - Follow up/PCP as directed Additional Instructions: Take your medications as prescribed. Continue your NSAID and muscle relaxant with the new medication. Call your primary care provider for further evaluation management. Prescriptions: Oxycodone HCl/Acetaminophen [Percocet 5-325 mg Tablet] 1 each PO Q12H PRN PRN #6 tablet MDD 2 PRN Reason: Moderate To Severe Pain
[2024-01-11 00:21] VITALS: RESP 18; TEMP 98.2; O2SAT 99
[2024-01-11] MEDS ORDERED: Hydromorphone 1 mg/ml Injection ONE (00:59)
[2024-01-11] MEDS ORDERED: solu-MEDROL ONE (00:59)
[2024-01-11] MEDS ORDERED: Compazine 10 MG/2 ML ONE (00:59)
[2024-01-11] MEDS ORDERED: Sterile H2O 10 ml IJ ONE (00:59)
[2024-01-11] MEDS: Compazine 10 MG/2 ML IM ONE (01:02)
[2024-01-11] MEDS: Hydromorphone 1 mg/ml Injection IM ONE (01:02)
[2024-01-11] MEDS: solu-MEDROL 125 MG, Sterile H2O 10 ml 2 ML IM ONE (01:02)
[2024-01-11 01:08] VITALS: BP 167/113; PULSE 84
== END 2024-01-11 01:21 | disposition home or self-care (01) ==
LOC: ED 23:49
DX: G89.29 Other chronic pain (principal); M54.50 Low back pain, unspecified; I10 Essential (primary) hypertension; Z79.891 Long term (current) use of opiate analgesic; Z79.899 Other long term (current) drug therapy
CPT/HCPCS: 96372; 99283; J1170; J2919

== ENCOUNTER 2024-01-13 19:08 | Emergency (ER) | payer OTHER ==
[2024-01-13 19:24] VITALS: RESP 18; TEMP 98.6; O2SAT 98
[2024-01-13] MEDS ORDERED: TORAdol 30 mg Injection ONE (20:00)
[2024-01-13] MEDS: TORAdol 30 mg Injection IM ONE (20:02)
--- NOTE | 2024-01-13 20:14 | ERPHSYRPT ---
- History of Present Illness Time Seen by Provider: 01/13/24 19:14 Source: patient Exam Limitations: no limitations Patient Subjective Stated Complaint: pt states that he got his hand stuck in a car door Triage Nursing Assessment: pt ambulated into the er; pt is axo x4; c/o left hand injury; pt states 8/10 pain to left hand; strong left radial pulse; good cap refill to left hand; limited ROM to left hand; no respiratory distress present; skin PDW; hypertensive Physician History: 33-year-old right-handed dominant male presented in the ER with complaint of left hand injury after it got stuck/slammed in the car door prior to arrival. Patient reports swelling of dorsum of hand with moderate intensity sharp pain, aggravated with movements of the fingers. No distal numbness or tingling but painful movements. No skin break. Allergies/Adverse Reactions: ondansetron [From Zofran] Allergy (Verified 01/11/24 00:09) Headache Patient states generic Home Medications: Amlodipine Besylate 10 mg PO DAILY 01/11/24 [History] Diclofenac Sodium 50 mg [Voltaren 50 mg] 50 mg PO TID 01/11/24 [History] Orphenadrine Citrate 100 mg [Norflex 100 MG Tablet] 100 mg PO BID PRN 01/11/24 [History] Hx Tetanus, Diphtheria Vaccination/Date Given: Yes (3 months ago in [place]) Hx Influenza Vaccination/Date Given: No Hx Pneumococcal Vaccination/Date Given: No Travel Risk - International Travel Have you traveled outside of the country in past 3 weeks: No - Emerging Infectious Disease Are you exhibiting symptoms associated with any current EIDs: No - Review of Systems Constitutional: No Symptoms Ears, Nose, & Throat: No Symptoms Respiratory: No Symptoms Cardiac: No Symptoms Abdominal/Gastrointestinal: No Symptoms Musculoskeletal: Injury, Joint Swelling Skin: No Symptoms Neurological: No Symptoms Endocrine: No Symptoms Hematologic/Lymphatic: No Symptoms - Past Medical History Pertinent Past Medical History: Yes Neurological History: No Pertinent History ENT History: No Pertinent History Cardiac History: Hypertension Respiratory History: No Pertinent History Endocrine Medical History: No Pertinent History Musculoskeletal History: No Pertinent History GI Medical History: No Pertinent History History: No Pertinent History Psycho-Social History: Anxiety, Bipolar, Depression, Other Male Reproductive Disorders: No Pertinent History Other Medical History: arachnoid cyst on brain, PTSD, multiple personality disorder, explosive behavior disorder, parvo - Past Surgical History Past Surgical History: Yes Neuro Surgical History: No Pertinent History Cardiac: No Pertinent History Respiratory: No Pertinent History Gastrointestinal: Appendectomy Genitourinary: No Pertinent History Musculoskeletal: No Pertinent History Male Surgical History: No Pertinent History Other Surgical History: fx nose-reset - Social History Smoking Status: Never smoker Exposure to second hand smoke: No Drug Use: none Patient Lives Alone: Yes - Social Determinants of Health Will the patient participate in the screening: Yes Do you worry about a steady place to live?: No Do you have any problems with any of the following?: No known problems In the past 12 months,have you had to go without utilities?: No Transportation Issues: No Has anyone in your support network made you feel unsafe?: No Have you or anyone in your house had to go without enough: No - Nursing Vital Signs Nursing Vital Signs: Initial Vital Signs Temperature 98.6 F 01/13/24 19:15 Pulse Rate 89 01/13/24 19:15 Respiratory Rate 18 01/13/24 19:15 Blood Pressure 175/117 01/13/24 19:15 O2 Sat by Pulse Oximetry 98 01/13/24 19:15 Pain Scale Pain Intensity 9 - Physical Exam General Appearance: no apparent distress Neck Exam: normal inspection, full range of motion Cardiovascular/Respiratory Exam: normal breath sounds, regular rate/rhythm Wrist Exam: normal inspection, non-tender, no evidence of injury, normal ROM Hand Exam: bone tenderness (Swelling dorsum of left hand. Warm, tender, distal neurovascular intact.), limited ROM, soft tissue tenderness, swelling Neuro/Tendon Exam: normal sensation, normal motor functions, normal tendon functions Mental Status Exam: alert, oriented x 3, cooperative Skin Exam: normal color SpO2 Interpretation: normal SpO2: 98 O2 Delivery: Room Air Ordered Tests: Active Orders 24 hr Category Date Time Status HAND (MINIMUM 3 VIEWS) Stat Exams 01/13/24 19:33 Taken WRIST (MIN 3 VIEWS) Stat Exams 01/13/24 19:33 Taken Medication Summary Discontinued Medications Generic Name Dose Route Start Last Admin Trade Name Freq PRN Reason Stop Dose Admin Ketorolac Tromethamine 30 mg 01/13/24 19:57 01/13/24 20:02 Ketorolac Tromethamine 30 Mg/Ml Inj IM 01/13/24 19:58 30 mg STAT ONE Administration Ketorolac Tromethamine Confirm 01/13/24 20:00 Ketorolac Tromethamine 30 Mg/Ml Inj Administered 01/13/24 20:01 Dose 30 mg .ROUTE .STK-MED ONE - Progress Progress: pain not gone completely Progress Note: 01/13/24 20:12 33-year-old right-handed dominant is evaluated for left hand pain after it got slammed in the car door accidentally prior to arrival. Patient has tenderness on the dorsum of the hand with no skin break. X-rays are negative for fracture dislocation reviewed by me, official report is pending. Given Toradol for symptomatic relief. I will place hand in the premade splint as I believe patient has contusion and would help with rest, recommended avoiding exertion, NSAIDs and outpatient follow-up with orthopedics. Discussed signs symptoms of worsening needing return to ER which he seems understanding. 01/13/24 20:17 Counseled pt/family regarding: diagnosis, need for follow-up, rad results Medical Desision Making - Diagnostic Testing Diagnostic test were ordered, analyzed, and reviewed by me: Yes Radiological Interpretation: Interpreted by me, Reviewed by me - Risk of complications The pt has a mod risk of morbidity or mortality based on: Need for prescription drug management - Departure Departure Disposition: Home Clinical Impression: Contusion of hand, left Condition: Stable Critical Care Time: No Referrals: MELITA CAPELLAN NP [Primary Care Provider] - Follow up with PCP 2 days GINNY OSEI MD [ACTIVE STAFF] - Follow up other (Call for appointment in the morning) Additional Instructions: Intermittent ice application. Take Tylenol/diclofenac as needed. Follow-up with primary care/orthopedics for reevaluation. Return to ER for increasing pain, difficulty movements at the fingers, bluish discoloration of the fingers etc. Prescriptions: Diclofenac Sodium 50 mg PO TID PRN 7 Days #20 tab PRN Reason: Pain
[2024-01-13 20:41] VITALS: BP 169/116; PULSE 83
--- NOTE | 2024-01-14 08:41 | XRAY ---
Indication: Pain following injury. Comparison: None 3 view left wrist obtained. No bony, articular, or soft tissue abnormalities.
--- NOTE | 2024-01-14 08:41 | XRAY ---
Indication: Pain following injury. Comparison: January 13, 2023 3 view left wrist obtained. No bony, articular, or soft tissue abnormalities.
== END 2024-01-13 20:48 | disposition home or self-care (01) ==
LOC: ED 19:08
DX: S60.222A Contusion of left hand, initial encounter (principal); W23.2XXA Caught, crushed, jammed or pinched between a moving and stationary object, initial encounter; I10 Essential (primary) hypertension; Z79.899 Other long term (current) drug therapy
CPT/HCPCS: 73110; 73130; 96372; 99283; J1885

== ENCOUNTER 2024-01-19 13:28 | Day surgery (SDC) | payer OTHER ==
[2024-01-19] MEDS ORDERED: Xylocaine-Mpf 2% 5 Ml Vial IJ ONE (13:29)
[2024-01-19] MEDS ORDERED: Versed 2 MG/2 ML Injection ONE (14:43)
[2024-01-19] MEDS ORDERED: Lactated Ringers 1,000 ML IV ONE (15:04)
[2024-01-19] MEDS ORDERED: DIPRIVAN 200 MG/20 ML IV ONE ×3 (15:07→15:32)
--- NOTE | 2024-01-19 16:34 | XRAY ---
Indication: Bilateral L4-S1 MBB. Intraoperative fluoroscopy provided for 15 seconds. Single digital spot image submitted for interpretation demonstrates posterior needle tips projecting over the expected left and right L4-S1 nerve roots. Correlate with intraoperative findings/report.
--- NOTE | 2024-01-19 16:44 | XRAY ---
15 seconds of fluoroscopy was used in surgery for a bilateral L4-S1 MBB.
== END 2024-01-19 16:29 | disposition home or self-care (01) ==
LOC: SDC-PAIN 13:28
PROVIDERS: ATTEND Psychiatry & Neurology Pain Medicine
DX: M47.816 Spondylosis without myelopathy or radiculopathy, lumbar region (principal)
CPT/HCPCS: 64493; 64494; 72020; 77002; J2250; J2704